=== PATIENT | female | born 1970 | race Caucasian/White ===

== ENCOUNTER 2020-03-02 15:41 | Emergency (ER) | payer OTHER, SELFPAY ==
[2020-03-02 15:50] VITALS: BP 125/81; PULSE 82; RESP 17; TEMP 37.2; O2SAT 98
--- NOTE | 2020-03-02 15:55 | ED.URI ---
HPI - URI/Sore Throat General Chief Complaint: Upper Respiratory Infection Stated Complaint: ear pain/sore throat/cough Time Seen by Provider: 03/02/20 15:59 Source: patient Mode of arrival: ambulatory Limitations: no limitations History of Present Illness HPI Narrative: Hannah García is a 49 yo female with PMH of ADD with complaint of R ear and R thraot pain and difficulty swallowing since Monday. Knot in R throat started today. Pain is 04/10 Related Data Home Medications Medication Instructions Recorded Confirmed dextroamphetamine-amphetamine 20 mg PO DAILY 03/02/20 03/02/20 [Adderall XR] Allergies Allergy/AdvReac Type Severity Reaction Status Date / Time Penicillins Allergy Unknown Hives / Verified 02/28/19 14:25 Red Face Review of Systems Review of Systems: Narrative: CONSTITUTIONAL: Denies fever, chills, sweats. EYES: Denies visual changes, redness, discharge. ENT: Denies rhinorrhea, congestion, has sore throat, R otalgia. CARDIOVASCULAR: Denies chest pain, palpitations, edema. RESPIRATORY: Denies dyspnea, wheezing, mild cough GASTROINTESTINAL: Denies abdominal pain, nausea, vomiting, diarrhea. GENITOURINARY: Denies dysuria, hematuria, abnormal discharge SKIN: Denies rash or itching. NEUROLOGIC: Denies numbness, or focal weakness. PSYCHIATRIC: Denies anxiety or depression. [facility] Surgical History Surgical History (Updated 03/02/20 @ 16:08 by Diana Belle CNP) History of tonsillectomy Family History Family History Other Hypertension Social History Social History (Updated 03/02/20 @ 16:09 by Diana Belle CNP) Smoking status: Never smoker Alcohol intake: current Comments At time of signature, I agree with nursing past medical, surgical, social and family history. There is no relevant family history pertinent to the presenting complaint. Exam Narrative: Exam Narrative: GENERAL: This is a well-nourished, well-developed patient, in mild distress. HEAD: normocephalic, atraumatic. EYES: Sclera clear/white. Vision is grossly intact. EARS: External ears normal, auditory canals clear , mild redness of canal on R, TMs normal without perforation. Hearing grossly intact. NOSE: External nose normal without nasal discharge, nares without redness, no rhinorrhea. THROAT: Mucous membranes moist, posterior pharynx erythema; lump R LN midway down trachea NECK: Neck supple, non-tender CARDIOVASCULAR: Regular rate and rhythm without murmurs, gallops, or rubs. RESPIRATORY: Coarse to auscultation. Breath sounds equal bilaterally. No wheezes, rales, or rhonchi. GASTROINTESTINAL: Abdomen soft, non-tender, SKIN: warm, intact with no suspicious lesions or rash, good texture and turgor. NEURO: awake, alert, and oriented to person, place and time. There were no obvious focal neurologic abnormalities. Steady gait EXTREMITIES: Normal range of motion. BACK: Nontender without deformity Course Course Emergency Course: Strep test neg- however with swallowing and lymph swelling, treated with amoxicillin Vital Signs Vital signs: Vital Signs Temperature 98.9 F 03/02/20 15:50 Pulse Rate 82 03/02/20 15:50 Respiratory Rate 17 03/02/20 15:50 Blood Pressure 125/81 03/02/20 15:50 Pulse Oximetry 98 03/02/20 15:50 Temperature 98.9 F 03/02/20 15:50 Pulse Rate 82 03/02/20 15:50 Respiratory Rate 17 03/02/20 15:50 Blood Pressure 125/81 03/02/20 15:50 Pulse Oximetry 98 03/02/20 15:50 MDM - URI/Sore Throat Differential Diagnosis Differential diagnosis: Likely otitis media, viral infection, pharyngitis and other Lab Data Labs: Strep Screen Presumptive Negative *(Reference Range: Negative)* Discharge Plan Discharge Clinical Impression: Adenitis, acute Pharyngitis Qualifiers: Pharyngitis/tonsillitis etiology: unspecified etiology Qualified Code(s): J02.9 - Acute pharyngitis, un
== END 2020-03-02 16:18 | disposition home or self-care (01) ==
PROVIDERS: Emergency Provider Nurse Practitioner; PCP Family Medicine
DX: L04.9 Acute lymphadenitis, unspecified (principal); J02.9 Acute pharyngitis, unspecified; H92.01 Otalgia, right ear
CPT/HCPCS: 87081; 87880; 99213; G0463

== ENCOUNTER 2023-05-16 14:07 | Outpatient (CLI) | payer OTHER, SELFPAY ==
--- NOTE | ~2023-05-16 | XR_ITS ---
EXAMINATION: XR lumbar spine 2-3V DATE: 05/16/2023 14:24 INDICATION: Dorsalgia, unspecified TECHNIQUE: Anteroposterior and lateral views of the lumbar spine, and cone-down lateral view of the l umbosacral junction were obtained. COMPARISON: None. FINDINGS: There are 2 mm of retrolisthesis of L3 on L4. The vertebral body heights are normal. There is no fracture. There is moderate loss of intervertebral disc space height at L2-3 and L3-4. Small de generative osteophytes project from the anterior endplates of multiple vertebral bodies. There is mod erate facet joint osteoarthritis of the lower lumbar spine. IMPRESSION: 1. Moderate lumbar spondylosis without acute findings. Reviewed, dictated and finalized at location [facility].
[2023-05-16 19:33] LABS: Hematocrit 38.6 % (37.0-47.0); Hemoglobin 12.9 g/dL (12.0-15.0); Mean Corpuscular HGB Conc 33.4 g/dl (32-36); Mean Corpuscular Hemoglobin 30.8 pg (26-34); Mean Corpuscular Volume 92.1 fl (80-100); Mean Platelet Volume 11.1 fl (7.4-10.4); Platelet Count Result 239 k/mm3 (150-375); Red Blood Count 4.19 M/mm3 (4.2-5.4); Red Cell Distribution Width 12.1 % (11.5-14.5)
[2023-05-16 19:47] LABS: Alanine Aminotransferase 54 U/L (6-35); Albumin Level 4.6 g/dL (3.5-5.1); Alkaline Phosphatase 70 U/L (38-126); Anion Gap 3 mmol/L (8-16); Aspartate Amino Transferase 67 U/L (14-36); Bilirubin,Total 0.5 mg/dL (0.2-1.3); Blood Urea Nitrogen 11 mg/dL (7-17); Calcium 9.5 mg/dL (8.4-10.2); Carbon Dioxide 32 mmol/L (22-30); Chloride 102 mmol/L (98-107); Cholesterol 238 mg/dL (0-200); Estimated Glomerular Filt Rate > 60; Glucose 86 mg/dL (65-110); HDL Direct 41 mg/dL; Potassium 4.2 mmol/L (3.4-5.0); Sodium 137 mmol/L (137-145); Triglycerides 279 mg/dL (<150)
[2023-05-16 20:06] LABS: Vitamin D 25 Hydroxy 35.1 ng/mL
[2023-05-16 20:52] LABS: Folic Acid 14.9 ng/mL (2.76->20)
[2023-05-16 21:45] LABS: LDL Cholesterol Direct 148 mg/dL
== END 2023-05-16 14:08 | disposition home or self-care (01) ==
PROVIDERS: PCP Nurse Practitioner Adult Health; Visit Provider Nurse Practitioner Adult Health
DX: M54.9 Dorsalgia, unspecified (principal); Z13.9 Encounter for screening, unspecified; M47.896 Other spondylosis, lumbar region
CPT/HCPCS: 36415; 72100; 80053; 80061; 82306; 82607; 82746; 84443; 85027

== ENCOUNTER 2023-10-11 12:47 | Outpatient (CLI) | payer OTHER, SELFPAY ==
--- NOTE | ~2023-10-11 | XR_ITS ---
Clinical Indication: Influenza PA and lateral views of the chest: Comparison: 02/28/2019 Findings: The lungs are clear, without evidence of focal consolidation or pleural effusion. Cardiome diastinal silhouette is within normal limits. Bones and soft tissues are unremarkable. Impression: Normal chest. Reviewed, dictated and finalized at [facility]. R TRIMMER Impression: Normal chest.
== END 2023-10-11 12:48 | disposition home or self-care (01) ==
LOC: ANHBWCIMG 12:48
PROVIDERS: PCP Nurse Practitioner Adult Health; Visit Provider Nurse Practitioner Adult Health
DX: J11.1 Influenza due to unidentified influenza virus with other respiratory manifestations (principal)
CPT/HCPCS: 71046

== ENCOUNTER 2024-11-06 10:53 | Emergency (ER) | payer OTHER, SELFPAY ==
[2024-11-06 12:01] VITALS: BP 115/78; PULSE 80; RESP 16; TEMP 36.4; O2SAT 97
--- NOTE | 2024-11-06 12:14 | ED_ITS ---
HPI - Back Pain/Injury General Chief Complaint: Back Pain/Injury Stated Complaint: BACK PAIN Time Seen by Provider: 11/06/24 10:55 Source: patient Mode of arrival: ambulatory Limitations: no limitations History of Present Illness HPI Narrative: Patient is a 54-year-old female who presents with upper left back pain since yesterday. Patient denies any new activity and was not doing anything abnormal when pain started. Patient does states she got a new bed. Denies any persistent cough. Reports feeling a ball in her back and it released. Related Data Home Medications ?Medication ?Instructions ?Recorded ?Confirmed ?Last Taken ?Type dextroamphetamine-amphetamine ER 20 mg PO BID 05/16/23 05/16/23 Unknown History 20 mg 24hr capsule,extend release (Adderall XR) montelukast 10 mg tablet 10 mg PO DAILY 05/16/23 05/16/23 Unknown History Allergies Allergy/AdvReac Type Severity Reaction Status Date / Time Penicillins Allergy Unknown Hives / Verified 11/06/24 12:05 Red Face Review of Systems Review of Systems: All systems reviewed & are unremarkable except as noted in HPI and below Constitutional: Constitutional: Denies body ache(s), Denies chills, Denies fatigue, Denies fever(s), Denies headache(s), Denies malaise and Denies weakness Eyes: Eyes: Denies blurry vision, Denies irritation and Denies loss of vision ENT: Denies otalgia, Denies headache(s), Denies nasal discharge, Denies sinus pain and Denies sore throat Cardiovascular: Cardiovascular: Denies chest pain, Denies irregular heart rhythm and Denies dyspnea Respiratory: Respiratory: Denies dyspnea Gastrointestinal: Gastrointestinal: Denies abdominal pain, Denies melena, Denies hematochezia, Denies diarrhea, Denies nausea and Denies vomiting Musculoskeletal: Musculoskeletal: Reports back pain, Denies myalgias and Denies arthralgias Integumentary/Breasts: Skin/Breast: Denies pruritus and Denies rash Neurologic: Denies headache(s), Denies loss of vision and Denies weakness Psychiatric: Psychiatric: Reports no additional psychiatric complaints Endocrine: Endocrine: Denies fatigue PMFSH Past Medical History Medical History Ectopic Surgical History Surgical History History of hysterectomy History of tonsillectomy and adenoidectomy History of tonsillectomy Family History Family History Father Cancer Hypertension Heart disease Mother Heart disease Grandparent Heart disease Hypertension Grandparent Cancer Hypertension Social History Social History Smoking status: Never smoker Tobacco type: e-cigarettes/vaping Alcohol intake: former Lack of Transportation: No Lack of Food: Never True Current Housing: I Have Housing Concerned About Future Housing: No Difficulty Paying Gas/Electric Bills: No Difficulty Paying for Meds: No Currently Unemployed: No Education: High School Diploma/GED Difficulty w/ Childcare or Family Care: No Living arrangements: with family Gender identity (if verbalized by the patient): Female Agree to blood products: Yes Comments At time of signature, agree with nursing past medical, surgical, social and family history. There is no relevant family history pertinent to the presenting complaint. Exam Const: General: cooperative, healthy appearing, comfortable, no acute distress and well nourished Nutritional Appearance: well nourished Orientation/consciousness: patient oriented x3 Limitations: no limitations HENMT: Head: normal to inspection, normocephalic and atraumatic Ears: hearing grossly normal bilaterally and external ears normal Face/Nose/Sinus: Normal external nose present, normal facial exam and face symmetric Face and sinus: normal facial exam and face symmetric Mouth: Yes lip normal Eyes: General: appearance normal, both eyes and all related structures Alignment and Position: alignment normal and position normal Periorbital: periorbital findings normal Eyelids: eyelids normal Pupils: Equal, round and reactive pupils present EOM: EOMs intact bilaterally Neck: Neck: normal visual inspection, full ROM and supple Chest: Chest palpation & inspection: normal inspection of the chest Resp: Effort & Inspection: normal respiratory effort and able to speak in complete sentences Auscultation: clear to auscultation bilaterally Cardio: Rate: regular rate Rhythm: regular rhythm Heart sounds: S1 normal heart sound present and S2 normal heart sound present GI: Inspection: normal to inspection Back/Spine/Pelvis: Thoracic/Lumbar Spine: thoracic and lumbar spine normal to inspection, pain with thoraco-lumbar ROM, paraspinal muscle tenderness on the left in the mid thoracic, No thoracic spinal tenderness and No lumbar spinal tenderness Skin: General skin exam: normal color and no rashes or lesions noted Neuro: General: patient oriented x3 and moves all extremities Cranial nerves: Yes Equal, round and reactive pupils present Speech: normal speech Gait exam (Neuro): Normal gait present Extrem: General: normal to inspection, full ROM and no edema Psych: Appearance: grossly normal and well kempt Mental Status: mental status grossly normal Speech and movement: Normal speech and movement present Affect: normal affect Attitude: cooperative Thought process: Normal thought process present Course Course Emergency Course: Patient is aware of diagnosis, understands and agrees to treatment plan. Anticipatory guidance given. Patient agrees to follow-up as directed and is aware of reasons to seek care at the emergency department. Portions of this record may have been created with voice recognition software Level of Care: Express Care Visit Vital Signs Vital signs: Vital Signs Temperature 36.4 C 11/06/24 12:01 Pulse Rate 80 11/06/24 12:01 Respiratory Rate 16 11/06/24 12:01 Blood Pressure 115/78 11/06/24 12:01 Pulse Oximetry 97 11/06/24 12:01 Temperature 36.4 C 11/06/24 12:01 Pulse Rate 80 11/06/24 12:01 Respiratory Rate 16 11/06/24 12:01 Blood Pressure 115/78 11/06/24 12:01 Pulse Oximetry 97 11/06/24 12:01 Reviewed MDM - Back Pain/Injury MDM Narrative Medical decision making narrative: Pt well hydrated appearing, in no respiratory distress, hemodynamically stable. Recommend supportive care. The patient is stable at time of discharge the clinical impression was discussed and the patient was given the opportunity to ask questions, which were addressed as completely as possible given the information available at present. Anticipatory guidance and return to care precautions were discussed and the importance of primary care follow-up was stressed and encouraged. The patient voiced understanding of the plan, indications to return, and the need for follow-up. Exam findings show no acute concerns or changes Patient is appropriate for outpatient treatment and follow-up. Differential Diagnosis Differential diagnosis: Likely thoracic back pain and other (Thoracic muscle strain. Thoracic radiculopathy) Medical Records Attestation: I reviewed the patient's medical records. Discharge Plan Discharge Clinical Impression: Muscle strain of left upper back Qualifiers: Encounter type: initial encounter Qualified Code(s): S29.012A - Strain of muscle and tendon of back wall of thorax, initial encounter Patient Disposition: Home, Self-Care Condition: Stable Instructions: Back Pain (ED) Additional Instructions: Please follow up with your Primary Care Doctor within 48-72 hours - call for an appointment. Walking and other gentle exercising several times a week has been shown to improve back pain; bed rest is not recommended. Take steroids in the morning with food, take muscle relaxers every 8 hours as needed for muscle spasm. do not drive or make any important decisions while on this medication for it can make you drowsy. You may apply heat or cold to the area as needed. Contact your doctor or go to the emergency department if you develop problems with bladder or bowel function, weakness or loss of feeling in one or both of your legs, or any other serious concerns. Patient Language: Greenlandic Prescriptions: New prednisone 20 mg tablet 40 mg PO DAILY 5 Days Qty: 10 0RF baclofen 10 mg tablet 10 mg PO TID 5 Days Qty: 15 0RF No Action montelukast 10 mg tablet 10 mg PO DAILY dextroamphetamine-amphetamine [Adderall XR] 20 mg capsule,extended release 24hr 20 mg PO BID methylprednisolone [Medrol (Parish)] 4 mg tablets,dose pack See Rx Instructions PO PER PKG DIR Qty: 21 0RF Rx Instructions: PO PER PKG DIR azithromycin 250 mg tablet See Rx Instructions PO .COMPLEX Qty: 6 0RF Rx Instructions: For 250 mg dose pack: take 500 mg today (day 1), then 250 mg for 4 days (days 2-5) PO azithromycin 250 mg tablet See Rx Instructions PO .COMPLEX Qty: 6 0RF Rx Instructions: For 250 mg dose pack: take 500 mg today (day 1), then 250 mg for 4 days (days 2-5) PO methylprednisolone [Medrol (Parish)] 4 mg tablets,dose pack See Rx Instructions PO PER PKG DIR Qty: 21 0RF Rx Instructions: PO PER PKG DIR sumatriptan succinate [Imitrex] 50 mg tablet 50 mg PO ONCE PRN (Reason: migraine headache) Qty: 14 1RF Follow-up/Referrals: Carole,Dale Purdy MD [Primary Care Provider] - 3 Days Time of Disposition: 12:21
== END 2024-11-06 12:25 | disposition home or self-care (01) ==
PROVIDERS: Emergency Provider Nurse Practitioner Family; PCP Family Medicine
DX: S29.012A Strain of muscle and tendon of back wall of thorax, initial encounter (principal); X58.XXXA Exposure to other specified factors, initial encounter
CPT/HCPCS: 99213; G0463

== ENCOUNTER 2025-02-09 15:27 | Emergency (ER) | payer OTHER, SELFPAY ==
--- NOTE | ~2025-02-09 | XR_ITS ---
XR foot RT min 3V Ordering provider: Deborah Lutz PA-C History: . right foot pain, injury . Comparison: None. FINDINGS: BONES: Oblique fracture of the midshaft of the right fifth metatarsal bone. JOINT SPACES: Narrowing of the proximal and distal interphalangeal joints of the fifth toe. Narrowing of the distal interphalangeal joints. No tarsal coalition. SOFT TISSUES: Normal. Calcaneal spur. IMPRESSION: Oblique fracture of the left fifth metatarsal bone. Polyarticular osteoarthritic changes. Reviewed, dictated and finalized at location A.
--- NOTE | ~2025-02-09 | XR_ITS ---
XR ankle RT min 3V Ordering provider: Deborah Lutz PA-C History: . right ankle pain, injury . Comparison: None. FINDINGS: BONES: Fracture in the fifth metatarsal bone. JOINT SPACES: Normal. SOFT TISSUES: Normal. Calcaneus spur. IMPRESSION: No acute osseous abnormality of the right ankle. Fracture of the midshaft of the fifth metatarsal bone. Reviewed, dictated and finalized at location A.
--- OUTSIDE RECORDS SUMMARY | 2025-02-09 15:30 | XMS_ITS | Referral Summary ---
Author Organization [facility] Address [address] [place] [id number] Care Team Providers Care Bindery Supervisor Name Role Phone Jordan Merritt MD Unavailable [phone] Dale Lam MD Primary Care Provider [phone] Encounters Date Type Department Care Team Description 02/03/2025 Orders Only [facility] Primary Care at [address] [phone] Dale Lam MD Mixed hyperlipidemia (Primary Dx) 02/03/2025 9:00 AM CDT Office Visit [facility] at [address] [phone] Dale Lam MD Attention deficit hyperactivity disorder (ADHD), combined type (Primary Dx) 01/09/2025 Results Follow-Up [facility] at [address] [phone] Dale Lam MD 01/07/2025 Telephone [facility] at [address] [phone] Dale Lam MD Test Results 01/06/2025 11:49 AM CDT - 01/06/2025 11:59 PM CDT Hospital Encounter [address] [address] Need for hepatitis C screening test; Need for hepatitis B screening test; Type 2 diabetes mellitus with hyperglycemia, without long-term current use of insulin (HCC); Screening, lipid; Screening for thyroid disorder; Well adult exam Discharge Disposition: Discharge to home or self care 01/06/2025 Telephone [facility] at [address] [place] [address] Jeffry Lara MD 01/06/2025 12:00 PM CDT Lab [facility] at [address] [phone] Well adult exam (Primary Dx) 01/06/2025 11:15 AM CDT Office Visit [facility] at [address] [phone] Dale Lam MD Well adult exam (Primary Dx); Screening, lipid; Screening for thyroid disorder; Type 2 diabetes mellitus with hyperglycemia, without long-term current use of insulin (HCC); Need for hepatitis B screening test; Need for hepatitis C screening test; Need for vaccination; Colon cancer screening from Last 3 Months Allergies Active Allergy Reactions Criticality Noted Date Comments Ampicillin Hives Medium Codeine Rash,Nausea & Vomiting Medium Reaction: Rash, Latex Rash Medium Reaction: Rash, Penicillins Hives,Vomiting,Urticaria Medium Reaction: Hives, , Reaction: Vomiting, Reaction: Hives, , Reaction: Vomiting, Medications multivitamin capsule Take 1 capsule by mouth daily Active albuterol HFA (Ventolin HFA) 90 mcg/actuation inhalerIndicatio ns:Mild intermittent asthma, unspecified whether complicated Inhale 2 puffs every 6 (six) hours as needed for wheezing or shortness of breath 8 g 5 01/06/20 21 Active SUMAtriptan (IMITREX) 50 mg tabletIndication s:Migraine Take 1 tablet (50 mg total) by mouth once as needed for migraine May repeat dose once in 2 hours if no relief. Do not exceed 2 doses in 24 hours. 9 tablet 3 09/15/20 22 Active atomoxetine (Strattera) 40 mg capsuleIndicatio ns:Attention-Def icit Hyperactivity Disorder Take 1 capsule (40 mg total) by mouth 2 (two) times a day 60 capsule 2 02/04/20 25 Active atomoxetine (Strattera) 40 mg capsuleIndicatio ns:Attention-Def icit Hyperactivity Disorder Take 1 capsule (40 mg total) by mouth daily 30 capsule 3 01/07/20 25 025 Discontinued(R eorder) atomoxetine (Strattera) 40 mg capsuleIndicatio ns:Attention-Def icit Hyperactivity Disorder Take 1 capsule (40 mg total) by mouth 2 (two) times a day 60 capsule 2 02/04/20 25 025 Discontinued Active Problems Problem Noted Date Diagnosed Date Diabetes mellitus 01/06/2025 Encounter for screening colonoscopy 01/06/2025 Neutropenia 03/21/2022 Acute recurrent maxillary sinusitis 07/23/2021 Assessment & Plan (07/23/2021 4:07 PM CDT): Azithromycin (though it is early in the course) Continue other medications in play Start mucinex DM as well (both for cough, and drainage) Alternatively, coricidin HBP can be used with plain Mucinex Malignant neoplasm of female breast 07/16/2021 Overview (07/16/2021): Added automatically from request for surgery [id number] COVID-19 virus infection 09/10/2020 Vitamin B12 deficiency 02/16/2018 Vitamin D deficiency 02/16/2018 Chronic midline low back pain with left-sided sc iatica 08/18/2017 Attention deficit hyperactiv ity disorder (ADHD), combined type 11/13/2015 Overview (01/06/2017): Attention deficit hyperactivity disorder, combined type Assessment & Plan (09/15/2022 1:31 PM TATTOOER): Stable, continues Adderall Refilled today for patient Herpes simplex virus (HSV) infection 05/05/2015 Overview (01/06/2017): Herpes simplex Asthma 07/25/2013 Overview (01/06/2017): Asthma Resolved Problems Problem Noted Date Diagnosed Date Resolved Date Menometrorrhagia 01/03/2019 05/14/2019 Overview (01/03/2019): Added automatically from request for surgery [id number] Dyspareunia, female 01/03/2019 05/14/20 19 Overview (01/03/2019): Added automatically from request for surgery [id number] Chronic pelvic pain in female 01/03/2019 05/14/2019 Overview (01/03/2019): Added automatically from request for surgery [id number] Pelvic pain in female 01/03/20192018 Overview (01/03/2019): Added automatically from request for surgery [id number] Abdominal adhesions 05/14/20 Adhesions of uterus 05/14/20 Adnexal adhesions 05/14/2019 Immunizations Immunization Administration Dates Next Due Influenza, Quadrivalent, Luann l Culture-based MDCK, Antibiotic Free, Intramuscular 08/21/2018 Influenza, Quadrivalent, Spl it, Intramuscular 09/15/2016 Influenza, Quadrivalent, Spl it, Preservative Free, Intramuscular 09/15/2022,07/07/2020,08/18/2017 Influenza, Trivalent, Cell Culture-based MDCK, Preservative Free, Antibiotic Free, Intramuscular 07/17/2024 Influenza, Trivalent, IM (MDV) 08/03/2013 Influenza, Unspecified 07/16/2021(Deferr ed: Patient Refused),08/21/2018 Pfizer SARS-CoV-2 Monovalent Vaccination (12+ Yrs) PURPLE 01/05/2021,12/08/2020 Pneumococcal Conjugate Pcv20 01/06/2025 Tdap 07/07/2020 ZOSTER Recombinant 01/06/2025 Social History Tobacco Use Types Packs/Day Years Used Date Smoking Tobacco: Former Cigarettes 1 28 0 10/02/1988 - 2016 Smokeless Tobacco: Never Tobacco Cessation:Counseling Given: Not Answered Comments:Smoking History Packs/day: 1 Packs Alcohol Use Standard Drinks/Week Comments Not Currently 0 (1 standard drink = 0.6 oz pur e alcohol) rarely Humiliation, Afraid, Rape, and Kick questionnair e Answer Date Recorded Within the last year, have y ou been afraid of your partner or ex-partner? No 07/07/2020 Within the last year, have y ou been humiliated or emotionally abused in other ways by your partner or ex-partner? No Within the last year, have y ou been kicked, hit, slapped, or otherwise physically hurt by your partner or ex-partner? No 07/07/2020 Within the last year, have y ou been raped or forced to have any kind of sexual activity by your partner or ex-partner? No 07/07/2020 Social Connection and Isolat ion Panel [NHANES] Answer Date Recorded In a typical week, how many times do you talk on the phone with family, friends, or neighbors? More than three times a week 07/07/2020 How often do you get togethe r with friends or relatives? More than three times a week 07/07/2020 How often do you attend [facility] or christian services? More than 4 times per year 07/07/2020 Do you belong to any clubs o r organizations such as mosque groups, unions, fraternal or athletic groups, or school groups? No 07/07/2020 How often do you attend meet ings of the clubs or organizations you belong to? Never 07/07/2020 Are you , , di vorced, , never , or living with a partner? 07/07/2020 AUDIT-C Answer Date Recorded Q1: How often do you have a drink containing alcohol? Never 01/06/2025 Q2: How many drinks containi ng alcohol do you have on a typical day when you are drinking? Patient does not drink Q3: How often do you have si x or more drinks on one occasion? Never 01/06/2025 Overall Financial Resource Strain (CARDIA) Answe r Date Recorded How hard is it for you to pa y for the very basics like food, housing, medical care, and heating? Somewhat hard 07/07/2020 PHQ-2 Answer Date Recorded PHQ-2 Total Score (If total score is 3 or more points, staff should administer the PHQ-9) 0 01/06/2025 [facility] - Occupational Stress Questionnaire Answer Date Recorded Do you feel stress - tense, restless, nervous, or anxious, or unable to sleep at night because your mind is troubled all the time - these days? To some extent 07/07/2020 Exercise Vital Sign Answer Date Recorde d On average, how many days pe r week do you engage in moderate to strenuous exercise (like a brisk walk)? 3 days 07/07/2020 On average, how many minutes do you engage in exercise at this level? 30 min 07/07/2020 Hunger Vital Sign Answer Date Recorded Within the past 12 months, y ou worried that your food would run out before you got the money to buy more. Never true 07/07/20 20 Within the past 12 months, t he food you bought just didn't last and you didn't have money to get more. Never true 07/07/2020 PRAPARE - Transportation Answer Date Re corded In the past 12 months, has l ack of transportation kept you from medical appointments or from getting medications? No 03/2020 In the past 12 months, has l ack of transportation kept you from meetings, work, or from getting things needed for daily living? No 07/07/2020 Comments No Sex and Gender Information Value Date Recorded Sex Assigned at Not on file Legal Sex Female 11:04 AM TATTOOER Gender Identity Not on file Sexual Orientation Not on file Occupation Industry Job Start Date Job End Date Not on file Not on file Not on file Not on file Last Filed Vital Signs Vital Sign Reading Time Taken Comments Blood Pressure 140/80 02/03/2025 9:09 AM CDT Pulse 74 02/03/2025 9:09 AM CDT Temperature 36.1 C (96.9 F) 02/03/2025 9:09 AM CDT Respiratory Rate 18 02/03/2025 9:09 AM CDT Oxygen Saturation 98% 02/03/2025 9:09 AM CDT Inhaled Oxygen Concentration - - Weight 85.7 kg (189 lb) 02/03/2025 9:09 AM CDT Height 175.3 cm (5' 9 ) 02/03/2025 9:09 AM CDT Body Mass Index 27.91 02/03/2025 9:09 AM CDT Plan of Treatment Upcoming Encounters Date Type Department Care Team (Late st Contact Info) Description 08/20/2025 11:00 AM TATTOOER Hospital Encounter [facility] [address] [place] [address] Jeffry Lara MD [address] [place] [address] 08/20/2025 11:00 AM TATTOOER - 08/20/2025 11:30 AM TATTOOER Surgery [facility] [address] [place] [address] Jeffry Lara MD [address] [place] [address] COLONOSCOPY Scheduled Procedures Name Priority Associated Diagnoses Date/Ti me COLONOSCOPY Encounter for screening colonoscopy 08/20/2025 11:00 AM TATTOOER Procedures Procedure Name Priority Date/Time Associated Diagnosis Comments EGFR Routine 01/06/2025 11:49 AM CDT Well adult exam CHOLESTEROL, LDL, DIRECT Routine 01/06/2025 11:49 AM CDT Screening, lipid DIFFERENTIAL AUTO Routine 01/06/2025 11:49 AM CDT Well adult exam HEMOGLOBIN A1C Routine 01/06/2025 11:49 AM CDT Type 2 diabetes mellitus with hyperglycemia, without long-term current use of insulin (HCC) COMPREHENSIVE METABOLIC PANEL Routine 01/06/2025 11:49 AM CDT Well adult exam CBC WITH AUTO DIFFERENTIAL Routine 01/06/2025 11:49 AM CDT Well adult exam THYROID FUNCTION CASCADE Routine 01/06/2025 11:49 AM CDT Screening for thyroid disorder LIPID PANEL Routine 01/06/2025 11:49 AM CDT Screening, lipid ALBUMIN CREATININE RATIO, URINE Routine 01/06/2025 11:49 AM CDT Type 2 diabetes mellitus with hyperglycemia, without long-term current use of insulin (HCC) HEPATITIS B SURFACE ANTIBODY (IMMUNE STATUS) Routine 01/06/2025 11:49 AM CDT Need for hepatitis B screening test HEPATITIS B CORE ANTIBODY, TOTAL Routine 01/06/2025 11:49 AM CDT Need for hepatitis B screening test HEPATITIS B SURFACE ANTIGEN Routine 01/06/2025 11:49 AM CDT Need for hepatitis B screening test HEPATITIS C ANTIBODY Routine 01/06/2025 11:49 AM CDT Need for hepatitis C screening test CT LUNG CANCER SCREENING Schedule Routine, Read Routine (OP Routine) 04/24/2024 4:45 PM CDT Personal history of nicotine dependence SCREENING MAMMOGRAM BILATERAL W ALIRIO Schedule Routine, Read Routine (OP Routine) 04/20/2022 8:37 AM CDT Breast cancer screening by mammogram PAP IG, HPV-HR Routine 01/01/2019 3:19 PM CDT Encounter for gynecological examination (general) (routine) with abnormal findings COLONOSCOPY IMAGES 02/17/2015 from Last 3 Months or Most Recently Relevant to Health Maintenance Results * eGFR (01/06/2025 11:49 AM CDT) eGFR >90 >=60 mL/min/1. 73 m2 Comment: Interpretive Data Reference Interval Normal >/= 90 mL/min/1.73m2 Mildly decreased* 60 - 89 mL/min/1.73m2 Mildly to moderately decreased 45 - 59 mL/min/1.73m2 Moderately to severely decreased 30 - 44 mL/min/1.73m2 Severely decreased 15 - 29 mL/min/1.73m2 Kidney Failure < 15 mL/min/1.73m2 *Relative to young adult level Estimated glomerular filtration rate is determined by the 2020 CKD-EPI equation recommended by the National Kidney Foundation (A Unifying Approach to GFR Estimation: Recommendations of the NKF-ASK Task Force on Reassessing the Inclusion of Race in Diagnosing Kidney Disease, JASN 2020). The CKD-EPI equation should not be used for patients with unstable renal function and has not been validated in children and those over 70. Current interpretive data was last reviewed 2021. Blood 01/06/2025 11:4 9 AM CDT 01/06/2025 11:22 PM CDT us Dale Lam MD LAB BLOOD ORDERABLES Final Result Performing Organization Address City/State/ZIP Co mt Phone Number [facility] [address] Department [place] [address] * Differential, auto (01/06/2025 11:49 AM CDT) Neutrophil abs 2.88 1.50 - 6.50 K/cumm Imm gran abs 0.01 0.00 - 0.10 K/cumm [facility] Lymphocyte abs 1.83 0.80 - 3.30 K/cumm [facility] Monocyte abs 0.48 0.20 - 0.80 K/cumm [facility] Eosinophil abs 0.07 0.00 - 0.50 K/cumm [facility] Basophil abs 0.04 0.00 - 0.10 K/cumm [facility] Neutrophil pct 54.2 % [facility] Comment: Interpretive Data Percent cell count reference ranges are not reported, since discordance with absolute values may lead to misinterpretation of CBC data. Current Interpretive Data was last revised on 2018. Imm gran pct 0.2 % [facility] Comment: Interpretive Data Percent cell count reference ranges are not reported, since discordance with absolute values may lead to misinterpretation of CBC data. Current Interpretive Data was last revised on 2018. Lymphocyte pct 34.5 % [facility] Comment: Interpretive Data Percent cell count reference ranges are not reported, since discordance with absolute values may lead to misinterpretation of CBC data. Current Interpretive Data was last revised on 2018. Monocyte pct 9.0 % [facility] Comment: Interpretive Data Percent cell count reference ranges are not reported, since discordance with absolute values may lead to misinterpretation of CBC data. Current Interpretive Data was last revised on 2018. Eosinophil pct 1.3 % [facility] Comment: Interpretive Data Percent cell count reference ranges are not reported, since discordance with absolute values may lead to misinterpretation of CBC data. Current Interpretive Data was last revised on 2018. Basophil pct 0.8 % [facility] Comment: Interpretive Data Percent cell count reference ranges are not reported, since discordance with absolute values may lead to misinterpretation of CBC data. Current Interpretive Data was last revised on 2018. Blood 01/06/2025 11:4 9 AM CDT 01/06/2025 11:12 PM CDT Dale Lam MD LAB BLOOD ORDERABLES Final Result Performing Organization Address City/[facility] Co de Phone Number [facility] [phone] [place] [address] * Thyroid Function [place] (01/06/2025 11:49 AM CDT) Pathologist [facility] TSH 1.55 0.30 - 4.20 mcIUnit/mL Blood 01/06/2025 11:4 9 AM CDT 01/06/2025 11:12 PM CDT Dale Lam MD LAB BLOOD ORDERABLES Final Result Performing Organization Address [facility] Co de Phone Number BANNERDIMAS [address] [place] [address] * (ABNORMAL) CBC with auto differential (01/06/2025 11:49 AM CDT) Pathologist [facility] WBC 5.31 3.80 - 9.90 K/cumm Hgb 13.2 11.9 - 15.5 g/dL [facility] Hct 41.0 35.6 - 45.5 % [facility] Plt 261 150 - 400 K/cumm [facility] MPV 11.0 9.1 - 12.3 fL [facility] RBC 4.43 3.90 - 5.20 M/cumm [facility] MCV 92.6 81.3 - 96.4 fL [facility] MCH 29.8 27.1 - 33.3 pg [facility] MCHC 32.2(L) 32.3 - 35.7 g/dL [facility] RDW CV 12.3 11.1 - 14.9 % [facility] RDW SD 42.2 35.7 - 48.1 fL [facility] NRBC abs 0.00 0.00 - 0.01 K/cumm [facility] Blood 01/06/2025 11:4 9 AM CDT 01/06/2025 11:12 PM CDT Dale Lam MD LAB BLOOD ORDERABLES Final Result Performing Organization Address [facility] de Phone Number [facility] [phone] [place] [address] * Hepatitis C antibody Blood (01/06/2025 11:49 AM CDT) Hep C Ab Nonreactive Nonreactive Comment: Interpretive Data Nonreactive: Antibodies to HCV not detected. Does NOT exclude the possibility of recent exposure to HCV. Equivocal: Equivocal for HCV antibodies. Supplemental molecular testing will be automatically performed to determine infection status in accordance with current CDC screening recommendations. Reactive: Positive for HCV antibodies. This may represent current or past HCV infection. Supplemental molecular testing will be automatically performed to determine current infection status in accordance with current CDC screening recommendations. Interpretive data was last revised on 2019. Blood 01/06/2025 11:4 9 AM CDT 01/06/2025 11:12 PM CDT Dale Lam MD LAB MICROBIOLOGY - GENERAL ORDERABLES Final Result Performing Organization Address [facility] Co de Phone Number [facility] [address] [employer] [place], [place] [id number] * Albumin Creatinine Ratio, Urine (01/06/2025 11:49 AM CDT) Albumin Ur <12.0 mg/L Comment: Interpretive Data No reference range established. Current interpretive data was last revised 2019. Creatinine Ur 139.8 mg/dL [facility] Comment: Interpretive Data No reference range established. Current interpretive data was last revised 2019. Albumin Creatinine Ratio, Ur <9 1 - 29 mg/g [facility] Urine 01/06/2025 11:4 9 AM CDT 01/06/2025 11:12 PM CDT Dale Lam MD LAB URINE ORDERABLES Final Result Performing Organization Address City/[facility] Co de Phone Number MICHEAL [phone] Department [place] [address] * Hepatitis B core antibody, total Blood (01/06/2025 11:49 AM CDT) Hep B core IgG/IgM Nonreactive Nonreactive Comment:Testing performed by : [facility], [address] [facility], [place]., [address] Blood 01/06/2025 11:4 9 AM CDT 01/07/2025 10:08 AM CDT Dale Lam MD LAB MICROBIOLOGY - GENERAL ORDERABLES Final Result Performing Organization Address [facility] Co de Phone Number MICHEAL [phone] Department [place] [address] * Hepatitis B surface antibody (immune status) Blood (01/06/2025 11:49 AM CDT) HBsAb (immune status) Nonreactive Comment: Interpretive Data Nonreactive: This result is consistent with a lack of immunity to Hepatitis B Virus when used in the setting of routine screening. Equivocal: The immune status of the individual should be further assessed, if appropriate, after consideration of clinical status, risk factors, and additional diagnostic information. Reactive: This result is consistent with immunity to Hepatitis B Virus when used in the setting of routine screening. Current interpretive data was last revised on 19. Blood 01/06/2025 11:4 9 AM CDT 01/06/2025 11:12 PM CDT Dale Lam MD LAB MICROBIOLOGY - GENERAL ORDERABLES Final Result Performing Organization Address [facility] Co de Phone Number MIC[facility]AL [phone] [facility] [place] [address] * Hepatitis B Surface Antigen Blood (01/06/2025 11:49 AM CDT) HepBsAg Nonreactive Nonreactive Blood 01/06/2025 11:4 9 AM CDT 01/06/2025 11:12 PM CDT Dale Lam MD LAB MICROBIOLOGY - GENERAL ORDERABLES Final Result Performing Organization Address [facility] Co de Phone Number KATHYADIMAS [phone] [facility] [place] [address] * (ABNORMAL) Cholesterol, LDL, direct (01/06/2025 11:49 AM CDT) LDL Cholesterol, Direct 132(H) <=129 mg/dL Comment: Interpretive Data Ages < or = 19 years Acceptable: <110 mg/dL Borderline high: 110-129 mg/dL High: >or= 130 mg/dL Ages > or = 20 years Optimal: <100 mg/dL Near optimal: 100-129 mg/dL Borderline high: 130-159 mg/dL High: >160 mg/dL Literature References: 1. Expert Panel on Integrated Guidelines for Cardiovascular Health and Risk Reduction in Children and Adolescents. Pediatrics 2011;128:S213 2. NCEP Expert Panel. Circulation 2004;110:227 Current Interpretive Data was last revised on 2018. Blood 01/06/2025 11:4 9 AM CDT 01/06/2025 11:22 PM CDT Narrative MICHEAL MONIQUE - 01/07/2025 12:20 AM CDT Cholesterol, LDL, direct reflexed based on Elevated Triglyceride (>400) Dale Lam MD LAB BLOOD ORDERABLES Final Result Performing Organization Address [facility] Co de Phone Number MICHEAL [phone] [facility] [place] [address] * (ABNORMAL) Hemoglobin A1c (01/06/2025 11:49 AM CDT) Hgb A1C 5.7(H) 4.0 - 5.6 % Estimated Average Glucose 117 mg/dL [facility] MONIQUE Comment: The ADA recommends reporting an estimated Average Glucose (eAG) with all Hemoglobin A1c results using the equation derived from a study of 507 normal and diabetic adults. Minority populations were underrepresented and children were not included. (Diabetes Care 31:1976-5994, 2008). The eAG is not equivalent to a fasting glucose. Blood 01/06/2025 11:4 9 AM CDT 01/06/2025 11:12 PM CDT us Dale Lam MD LAB BLOOD ORDERABLES Final Result [facility] MONIQUE [address] Department [place] [address] * (ABNORMAL) Lipid panel (01/06/2025 11:49 AM CDT) Cholesterol 234(H) 30 - 199 mg/dL Comment: Interpretive Data Ages < or = 19 years Acceptable: <170 mg/dL Borderline high: 170-199 mg/dL High: >or= 200 mg/dL Ages > or = 20 years Desirable: <200 mg/dL Borderline high: 200-239 mg/dL High: >or= 240 mg/dL Literature References: 1. Expert Panel on Integrated Guidelines for Cardiovascular Health and Risk Reduction in Children and Adolescents. Pediatrics 2011;128:S213 2. NCEP Expert Panel. Circulation 2004;110:227 Current Interpretive Data was last revised on 2018. Triglycerides 493(H) <=149 mg/dL [facility] MONIQUE Comment: Interpretive Data Ages < or = 9 years Acceptable: <75 mg/dL Borderline high: 75-99 mg/dL High: >or= 100 mg/dL Ages 10 to 20 years Acceptable: <90 mg/dL Borderline high: 90-129 mg/dL High: >or= 130 mg/dL Ages > or = 20 years Desirable: <150 mg/dL Borderline high: 150-199 mg/dL High: 200-499 mg/dL Very high: >or= 499 mg/dL Literature References: 1. Expert Panel on Integrated Guidelines for Cardiovascular Health and Risk Reduction in Children and Adolescents. Pediatrics 2011;128:S213 2. NCEP Expert Panel. Circulation 2004;110:227 Current Interpretive Data was last revised on 2018. HDL 40 >=40 mg/dL MICHEAL MONIQUE Comment: Interpretive Data Ages < or = 19 years Acceptable: >45 mg/dL Borderline low: 40-45 mg/dL Low: <40 mg/dL Ages > or = 20 years Desirable: >or= 60 mg/dL Low: <40 mg/dL Literature References: 1. Expert Panel on Integrated Guidelines for Cardiovascular Health and Risk Reduction in Children and Adolescents. Pediatrics 2011;128:S213 2. NCEP Expert Panel. Circulation 2004;110:227 Current Interpretive Data was last revised on 2018. LDL, calculated See Comment <=129 mg/dL MICHEAL MONIQUE Comment: Unable to calculate due to elevated Triglycerides. Interpretive Data Ages < or = 19 years Acceptable: <110 mg/dL Borderline high: 110-129 mg/dL High: >or= 130 mg/dL Ages > or = 20 years Optimal: <100 mg/dL Near optimal: 100-129 mg/dL Borderline high: 130-159 mg/dL High: >160 mg/dL Calculated using the Rosas LDL-C estimating equation. This equation was implemented on 2024. Prior to this date LDL-C was estimated using the Friedewald equation. Literature References: 1. Expert Panel on Integrated Guidelines for Cardiovascular Health and Risk Reduction in Children and Adolescents. Pediatrics 2011;128:S213 2. NCEP Expert Panel. Circulation 2004;110:227 3. Rosas Swann et al. TOR Cardiol. 2020 January 30;5(5):540-548. doi: 10.1001/jamacardio.2020.0013 Current Interpretive Data was last revised on 2024. Non-HDL Cholesterol 194 mg/dL MICHEAL MONIQUE Comment: Interpretive Data Ages < or = 19 years Acceptable: <120 mg/dL Borderline high: 120-144 mg/dL High: >145 mg/dL Ages > or = 20 years When triglycerides are >200 mg/dL, Non-HDL cholesterol is a secondary target of therapy with treatment goals that are 30 mg/dL greater than the LDL cholesterol target. Literature References: 1. Expert Panel on Integrated Guidelines for Cardiovascular Health and Risk Reduction in Children and Adolescents. Pediatrics 2011;128:S213 2. NCEP Expert Panel. Circulation 2004;110:227 Current Interpretive Data was last revised on 2018. Chol/HDL ratio 6 [facility] Blood 01/06/2025 11:4 9 AM CDT 01/06/2025 11:12 PM CDT us Dale Lam MD LAB BLOOD ORDERABLES Final Result [facility] [id number] Department [place] [address] * Comprehensive metabolic panel (01/06/2025 11:49 AM CDT) Sodium 142 135 - 145 mmol/L Potassium, pl 3.8 3.3 - 4.9 mmol/L [facility] Chloride 100 97 - 110 mmol/L [facility] CO2 31 22 - 32 mmol/L [facility] Anion gap 11 2 - 15 mmol/L [facility] BUN 16 6 - 25 mg/dL [facility] Creatinine 0.67 0.60 - 1.10 mg/dL [facility] Glucose 84 70 - 199 mg/dL [facility] Comment: Interpretive Data Fasting glucose >/= 126 mg/dl is diagnostic for diabetes. Fasting is defined as no caloric intake for at least 8 hours. Fasting glucose between 100 mg/dl to 125 mg/dl is diagnostic of prediabetes. In a patient with classic symptoms of hyperglycemia or hyperglycemic crisis, a random glucose >/= 200 mg/dl is diagnostic for diabetes. In the absence of unequivocal hyperglycemia, results should be confirmed by repeat testing. The classification and Diagnosis of Diabetes Diabetes Care 202; 46: S19-S40. Current interpretive data was last revised 2022. Calcium 10.0 8.5 - 10.3 mg/dL CERN[facility] Bilirubin, total 0.3 0.1 - 1.2 mg/dL [facility] Protein, pl 7.5 6.5 - 8.5 g/dL [facility] Albumin 4.6 3.5 - 5.0 g/dL [facility] Alk phos 78 40 - 130 Units/L [facility] ALT 36 7 - 45 Units/L [facility] AST 36 10 - 45 Units/L [facility] Blood 01/06/2025 11:4 9 AM CDT 01/06/2025 11:12 PM CDT Dale Lam MD LAB BLOOD ORDERABLES Final Result [facility]HEAL MONIQUE [id number] Department [place] [address] * CT Lung Cancer Screening (04/24/2024 4:45 PM CDT) Anatomical Region Laterality Modality Chest N/A Computed Tomogra phy 04/25/2024 9:50 AM CDT Narrative 04/25/2024 10:03 AM CDT EXAM DESCRIPTION: CT LUNG CANCER SCREENING REASON FOR STUDY: Screening CT of the chest in a former smoker with a 28 pack year smoking history. Additional history: None. TECHNIQUE: Low dose CT scan of the chest was performed without intravenous contrast using helical scanning technique. The exam extends from the lung apices through the lung bases. Automatic exposure control was used as a dose optimization technique. NOTE: This study was performed for the specific purposes of lung cancer screening and is not an alternative to diagnostic chest CT. RADIATION DOSE: CT dose index volume (CTDIvol) = 1.68 mGy COMPARISON: 01/12/2023, 10/12/2022, 10/20/2017 FINDINGS: SMOKING RELATED LUNG DISEASE: Mild emphysema. Mild biapical pleuroparenchymal scarring. Hyperinflation. LUNG NODULES: Previously documented nodules are as follows: 4.5 mm nodule right apex image 32, stable. 3 mm nodule lateral right apex image 36, stable. Juxtapleural nodules lateral right apex image 49, 3 mm, stable. Juxta fissural nodule right minor fissure image 140, stable. No new suspicious pulmonary nodule within either lung. CORONARY ARTERY CALCIFICATION: Minimal OTHER: There is no pneumonic consolidation. Subsegmental scarring and atelectasis noted. Central airways widely patent. The thyroid gland is partially visualized, unremarkable. There is no mediastinal or hilar lymphadenopathy. The esophagus is unremarkable. The heart is normal in size without pericardial effusion. The thoracic aorta is normal in caliber. There is no axillary lymphadenopathy. Visualized chest wall is unremarkable. The included upper abdomen reveals no significant incidental findings. There is cervical and thoracic spondylosis with degenerative disc disease. Endplate sclerosis T10-11 appears slightly greater than on the previous examination. IMPRESSION: Mild emphysema. Stable pulmonary nodules. No new suspicious nodularity. Additional findings as above Lung-RADS category 2: Benign appearance or behavior. Recommendation: Low dose Screening CT of chest in 12 months. THIS IS AN ELECTRONICALLY VERIFIED FINAL REPORT 04/25/2024 10:03 AM - Electronically signed by Sherry Christiansen M.D. TW: Report ID: [id number] Reading Location: [place] [address] Procedure Note Sherry Christiansen MD - 04/25/2024 EXAM DESCRIPTION: CT LUNG CANCER SCREENING REASON FOR STUDY: Screening CT of the chest in a former smoker with a28 pack year smoking history. Additional history: None. TECHNIQUE: Low dose CT scan of the chest was performed without intravenous contrast using helical scanning technique. The exam extends from the lung apices through the lung bases. Automatic exposure control was used as adose optimization technique. NOTE: This study was performed for the specific purposes of lung cancer screening and is not an alternative to diagnostic chest CT. RADIATION DOSE: CT dose index volume (CTDIvol) = 1.68 mGy COMPARISON: 01/12/2023, 10/12/2022, 10/20/2017 FINDINGS: SMOKING RELATED LUNG DISEASE: Mild emphysema. Mild biapical pleuroparenchymal scarring. Hyperinflation. LUNG NODULES: Previously documented nodules are as follows: 4.5 mm nodule right apex image 32, stable. 3 mm nodule lateral right apex image 36, stable. Juxtapleural nodules lateral right apex image 49, 3 mm, stable. Juxta fissural nodule right minor fissure image 140, stable. No new suspicious pulmonary nodule within either lung. CORONARY ARTERY CALCIFICATION: Minimal OTHER: There is no pneumonic consolidation. Subsegmental scarring and atelectasis noted. Central airways widely patent. The thyroid gland is partially visualized, unremarkable. There is no mediastinal or hilar lymphadenopathy. The esophagus is unremarkable. The heart is normal insize without pericardial effusion. The thoracic aorta is normal in caliber.There is no axillary lymphadenopathy. Visualized chest wall is unremarkable.The included upper abdomen reveals no significant incidental findings. Thereis cervical and thoracic spondylosis with degenerative disc disease.Endplate sclerosis T10-11 appears slightly greater than on the previousexamination. IMPRESSION: Mild emphysema. Stable pulmonary nodules. No new suspicious nodularity. Additional findings as above Lung-RADS category 2: Benign appearance or behavior. Recommendation: Low dose Screening CT of chest in 12 months. THIS IS AN ELECTRONICALLY VERIFIED FINAL REPORT 04/25/2024 10:03 AM - Electronically signed by Sherry Christiansen M.D. TW: MONIQUE Report ID: [id number] Reading Location: [place] [address] Kim Cotter NP IMG CT PROCEDURES Final Result * Screening Mammogram Bilateral W Alirio (04/20/2022 8:37 AM CDT) Anatomical Region Laterality Modality Breast Bilateral Mammography 04/20/2022 8:42 AM CDT Impressions 04/20/2022 8:42 AM CDT There is no mammographic evidence of malignancy. A 1 year screening mammogram is recommended. BI-RADS: 1 - Negative. The patient has been or will be contacted. The patient will be entered into a reminder system with a target due date of 1 year for her next mammogram. Electronically signed by: ERIK Gallego 04/20/2022 8:42 AM CDT EXAMINATION: SCREENING MAMMOGRAM BILATERAL W ALIRIO ORDERING HEALTHCARE PROVIDER: DALE LAM HISTORY: Routine screening mammography. COMPARISON: 10/12/2020, 11/12/2018, 04/27/2016. TECHNIQUE: CC and MLO views of both breasts were obtained with digital technique using digital breast tomosynthesis with C view. Computer aided detection was utilized. FINDINGS: DENSITY: The breasts are heterogeneously dense, which may obscure small masses. BREASTS: There is no new suspicious finding either breast on mammogram. Dale Lam MD IM MAMMO PROCEDURES Final Result * Pap IG, HPV-hr (01/01/2019 3:19 PM CDT) Clinical indication Comment [facility] - 01 Comment:NEGATIVE FOR INTRAEP ITHELIAL LESION OR MALIGNANCY. Specimen adequacy: Comment [facility] - 01 Comment: Satisfactory for evaluation. Endocervical and/or squamous metaplastic cells (endocervical component) are present. Clinician provided ICD10 Comment [facility] - 01 Comment:Z01.411 Performed by Comment [facility] - 01 Comment:eCle Azar, Cyto technologist . . [facility] - 01 Note: Comment [facility] - 01 Comment: The Pap smear is a screening test designed to aid in the detection of premalignant and malignant conditions of the uterine cervix. It is not a diagnostic procedure and should not be used as the sole means of detecting cervical cancer. Both false-positive and false-negative reports do occur. Test methodology Comment [facility] - 01 Comment: This liquid based ThinPrep(R) pap test was screened with the use of an image guided system. HPV, high-risk Negative Negative [facility] Comment: This high-risk HPV test detects thirteen high-risk types (16/18/31/33/35/39/45/51/52/56/58/59/68) without differentiation. Endocervical/vagi nal 01/01/2019 3:19 PM CDT 01/01/2019 Narrative [facility] - 01/03/2019 3:11 PM CDT Performed at: - [facility] [id number] Fraud Examiner: Yi Johnson MD, Phone: [phone] Performed at: - [facility] [id number] Fraud Examiner: Yi Johnson MD, Phone: [phone] Specimen Comment: No. of containers..01 ThinPrep Vial Jordan Merritt MD LAB PATHOLOGY ORDERABLES F inal Result [facility] 02 * COLONOSCOPY IMAGES (02/17/2015) Anatomical Region Laterality Modality Other Narrative 02/17/2015 Ordered by an unspecified provider. us Historical Provider GI PROCEDURE ORDERABLES F inal Result from Last 3 Months or Most Recently Relevant to Health Maintenance Insurance [employer] CHO[employer] PLUS [employer] CHOICE PLUS [employer] [place] [address] Advance Directives For more information, please contact: [phone] * Full Code (Latest Code Status on File) Date Activated Date Inactivated Comments 03/13/2019 2:07 PM 03/14/2019 3:50 PM Care Teams Bindery Supervisor Relationship Specialty Start Date End Date Dale Lam MD [address] [place] [address] PCP - General Family Medicine 10/14/24 Jordan Merritt MD [address] [place] [address] [address] [place] [address] Foreman Obstetrics and Gynecology 07/07/20
--- OUTSIDE RECORDS SUMMARY | 2025-02-09 15:30 | XMS_ITS | Encounter Summary ---
Author Organization [facility] Address [address] [facility] [address] [place] [address] Phone Care Team Providers Care Certified Tower Climber Name Role Phone Dale Lam MD Primary Care Provider [phone] Jordan Merritt MD Unavailable [phone] Po Vidal MD Primary Care Provider [phone] Dale Lam MD Primary Care Provider [phone] Encounter Details Date Type Department Care Team (Late st Contact Info) Description 10/06/2017 Orders Only [facility] ProviderBrooklyn MD [address] [place] [id number] Social History Tobacco Use Types Packs/Day Years Used Date Smoking Tobacco: Former Smokeless Tobacco: Never Comments:Smoking History Pac ks/day: 1 Packs Alcohol Use Standard Drinks/Week Comments No 0 (1 standard drink = 0.6 oz pur e alcohol) Comments No Sex and Gender Information Value Date Recorded Sex Assigned at Not on file Legal Sex Female 11:04 AM FAMILY WELFARE SOCIAL WORK PROFESSOR Gender Identity Not on file Sexual Orientation Not on file documented as of this encounter Plan of Treatment Upcoming Encounters Date Type Department Care Team (Late st Contact Info) Description 08/20/2025 11:00 AM FAMILY WELFARE SOCIAL WORK PROFESSOR Hospital Encounter [address] [address] Jeffry Lara MD [address] [facility] [address] [place] [address] 08/20/2025 11:00 AM FAMILY WELFARE SOCIAL WORK PROFESSOR - 08/20/2025 11:30 AM FAMILY WELFARE SOCIAL WORK PROFESSOR Surgery [facility] [address] [place] [id number] Jeffry Lara MD [address] [place] [address] [address] [place] [address] COLONOSCOPY Scheduled Procedures Name Priority Associated Diagnoses Date/Ti me COLONOSCOPY Encounter for screening colonoscopy 08/20/2025 11:00 AM FAMILY WELFARE SOCIAL WORK PROFESSOR documented as of this encounter Procedures Procedure Name Priority Date/Time Associated Diagnosis Comments DISCHARGE LABORATORY CUMULATIVE REPORT 10/06/2017 12:00 AM FAMILY WELFARE SOCIAL WORK PROFESSOR documented in this encounter Results * DISCHARGE LABORATORY CUMULATIVE REPORT (10/06/2017 12:00 AM FAMILY WELFARE SOCIAL WORK PROFESSOR) Narrative 10/06/2017 12:00 AM FAMILY WELFARE SOCIAL WORK PROFESSOR Ordered by an unspecified provider. Historical Provider LAB BLOOD ORDERABLES Gabby l Result documented in this encounter Visit Diagnoses Not on filedocumented in this encounter Additional Health Concerns Infection Onset Date Last Indicated Resolved Time COVID: Suspected 09/04/2020 09/04/2020 09/06/2020 3:55 AM FAMILY WELFARE SOCIAL WORK PROFESSOR COVID19 09/04/2020 09/04/2020 09/18/2020 3:07 AM FAMILY WELFARE SOCIAL WORK PROFESSOR COVID: Recovered Comment:Added based on recent COVID infection. 09/18/2020 10/12/2020 01/16/2021 3:07 AM C DT COVID: Suspected 01/28/2022 01/28/2022 01/28/2022 1:38 PM CDT COVID: Suspected 03/02/2022 03/02/2022 03/02/2022 10:11 AM CDT COVID19 03/02/2022 03/02/2022 03/12/2022 3:05 AM CDT COVID: Recovered Comment:Added based on recent COVID infection. 03/12/2022 03/21/2022 07/10/2022 3:05 AM C DT COVID: Suspected 10/28/2022 10/28/2022 10/28/2022 11:52 AM FAMILY WELFARE SOCIAL WORK PROFESSOR COVID: Suspected 10/14/2024 10/14/2024 10/14/2024 11:21 AM FAMILY WELFARE SOCIAL WORK PROFESSOR documented as of this encounter Care Teams Certified Tower Climber Relationship Specialty Start Date End Date Dale Lam MD PCP - General 12/30/16 04/02/24 Po Vidal MD [address] [facility] [address] [place] [address] PCP - General Family Practice 04/03/24 10/13/24 Dale Lam MD [address] [facility] [address] [place] [address] PCP - General Family Medicine 10/14/24 Jordan Merritt MD [address] [place] [address] [address] [place] [address] Csr Technician Obstetrics and Gynecology 07/07/20 documented as of this encounter
--- OUTSIDE RECORDS SUMMARY | 2025-02-09 15:30 | XMS_ITS | Clinical Summary ---
Author Organization [facility] Address [address] [place] [address] Care Team Providers Care Patient Insurance Clerk Name Role Phone Jordan Merritt MD Unavailable [phone] Dale Lam MD Primary Care Provider [phone] Allergies Active Allergy Reactions Criticality Noted Date [...] (07/16/2021): Added automatically from request for surgery [id number] COVID-19 virus infection 09/10/2020 Vitamin B12 deficiency 02/16/2018 Vitamin D deficiency 02/16/2018 Chronic midline low back pain with left-sided sc iatica 08/18/2017 Attention deficit hyperactiv ity disorder (ADHD), combined type 11/13/2015 Overview (01/06/2017): Attention deficit hyperactivity disorder, combined type Assessment & Plan (09/15/2022 1:31 PM PAUNCH TRIMMER): Stable, continues Adderall Refilled today for patient Herpes simplex virus (HSV) infection 05/05/2015 Overview (01/06/2017): Herpes simplex Asthma 07/25/2013 Overview (01/06/2017): Asthma Resolved Problems Problem Noted Date Diagnosed Date Resolved Date Menometrorrhagia 01/03/2019 05/14/2019 Overview (01/03/2019): Added automatically from request for surgery [id number] Dyspareunia, female 01/03/2019 05/14/20 19 Overview (01/03/2019): Added automatically from request for surgery [id number] Chronic pelvic pain in female 01/03/2019 05/14/2019 Overview (01/03/2019): Added automatically from request for surgery [id number] Pelvic pain in female 01/03/20192018 Overview (01/03/2019): Added automatically from request for surgery [id number] Abdominal adhesions 05/14/20 19 Adhesions of uterus 05/14/20 19 Adnexal adhesions 05/14/2019 Encounters Date Type Department Care Team Description 02/03/2025 9:00 AM CDT Office Visit [facility] Primary [facility] at [address] [phone] Dale Lam MD Attention deficit hyperactivity disorder (ADHD), combined type (Primary Dx) 02/03/2025 Orders Only [facility] at [address] [phone] Dale Lam MD Mixed hyperlipidemia (Primary Dx) 01/09/2025 Results Follow-Up [facility] at [address] [phone] Dale Lam MD 01/07/2025 Telephone [facility] at [address] [phone] Dale Lam MD Test Results 01/06/2025 12:00 PM CDT Lab [facility] Outpatient Lab at [address] [phone] Well adult exam (Primary Dx) 01/06/2025 11:49 AM CDT - 01/06/2025 11:59 PM CDT Hospital Encounter [address] [address] Need for hepatitis C screening test; Need for hepatitis B screening test; Type 2 diabetes mellitus with hyperglycemia, without long-term current use of insulin (HCC); Screening, lipid; Screening for thyroid disorder; Well adult exam Discharge Disposition: Discharge to home or self care 01/06/2025 11:15 AM CDT Office Visit [facility] Primary Care at [address] [phone] Dale Lam MD Well adult exam (Primary Dx); Screening, lipid; Screening for thyroid disorder; Type 2 diabetes mellitus with hyperglycemia, without long-term current use of insulin (HCC); Need for hepatitis B screening test; Need for hepatitis C screening test; Need for vaccination; Colon cancer screening 01/06/2025 Telephone [facility] G[facility] at [address] [place] [address] Jeffry Lara MD from Last 3 Months Immunizations Immunization Administration Dates Next Due Influenza, [...] Pcv20 01/06/2025 Tdap 07/07/2020 ZOSTER Recombinant 01/06/2025 Surgical History Surgery Date Site/Laterality Comments TONSILLECTOMY tonsillectomy SALPINGECTOMY 10/02/1993 - 10/01/1994 Right salpingectomy OTHER SURGICAL HISTORY 10/02/1990 - 10/01/1991 : REDUCTION MAMMOPLASTY breast reduction HYSTERECTOMY 03/13/2019 Total laparoscopic hysterectomy, left salpingectomy and lysis of extensive dense adhesions. REDUCTION MAMMAPLASTY 10/02/2004 - 10/01/2005 Bilateral Medical History Medical History Date Comments Hx Other Medical 07/1991 Abdominal cramping Abnormal mens trual period Asthma ADHD (attention deficit hyperactivity disorder) Family History Medical History Relation Name Comments Hypertension Father Carl Garcia Hypertension; Hypertension Mother Laura Garcia Hypertension; Heart disease Paternal Grandmother Mali Garcia Heart disease; Cervical cancer Sister Cancer, cerv ical; Relation Name Status Comments Father Carl Garcia Mother Laura Garcia Paternal Grandmother Mali Garcia Sister Social History Tobacco Use Types Packs/Day Years [...] week 07/07/2020 How often do you attend chur ch or samaritan services? More than 4 times per year 07/07/2020 Do you belong to any clubs o r organizations such as orthodoxy groups, unions, fraternal or athletic groups, or [...] staff should administer the PHQ-9) 0 01/06/2025 [facility] - Occupational Stress [...] on file Legal Sex Female 11:04 AM PAUNCH TRIMMER Gender Identity Not on file Sexual Orientation Not on file Occupation Industry Job Start Date Job End Date Not on file Not on file Not on file Not on file Obstetrics History Para Term AB IAB SAB Ectopic Multiple Livin g Live Births 3 1 1 2 1 1 0 1 Date Outcome GA Total Labor Labor/2nd/3rd Weight Sex Type Anes PTL Daja A1 A5 Name Clin Term SAB Ectopic Last Filed Vital Signs Vital Sign Reading [...] st Contact Info) Description 08/20/2025 11:00 AM PAUNCH TRIMMER Hospital Encounter [address] [address] Jeffry Lara MD [address] [place] [address] 08/20/2025 11:00 AM PAUNCH TRIMMER - 08/20/2025 11:30 AM PAUNCH TRIMMER Surgery [address] [address] Jeffry Lara MD [address] [place] [address] COLONOSCOPY Scheduled Procedures Name Priority Associated Diagnoses Date/Ti me COLONOSCOPY Encounter for screening colonoscopy 08/20/2025 11:00 AM PAUNCH TRIMMER Health Maintenance Due Date Last Done Comments Dilated Eye Exam 1970 Colon Cancer Screening-Colonoscopy 02/17/2025 02/17/2015, 02/17/2015 Lung Cancer Screening 04/25/2025 04/24/2024 , 01/12/2023, 10/12/2022 Hemoglobin A1C 07/08/2025 01/06/2025 Breast Cancer Screening-Mammogram 10/13/2025 04/20/2022, 10/12/2020, 11/12/2018, Additional history exists Postponed from 04/20/2023 (Patient declined, but will receive in the future) Albumin Creatinine Ratio, Urine 01/06/2026 01/06/2025 Depression Screening 01/06/2026 01/06/2025, 12/14/2022, 09/15/2022, Additional history exists Foot Exam 01/06/2026 01/06/2025 Lipid Panel 01/06/2026 01/06/2025, 09/01, 03/21/2022, Additional history exists Regular Well Visit/Exam 18-64 01/06/2026 01/06/2025, 09/15/2022, 03/26/2021, Additional history exists Zoster Vaccine (2 of 2) 01/06/2026 01/06/2025 Post poned from 03/03/2025 (Insurance / Financial) eGFR 01/06/2026 01/06/2025, 09/01, 03/21/2022, Additional history exists DTaP/Tdap/Td Vaccine (2 - Td or Tdap) 07/07/2030 07/07/2020 Cervical Cancer Screening Discontinued 01/01/2019 Covid-19 Vaccine Discontinued 01/05/2021, 12/08/2020 Influenza Vaccine Completed 07/17/2024, , 07/07/2020, Additional history exists Hepatitis B Screening Completed 01/06/2025 Hepatitis C Screening Completed 01/06/2025 Pneumococcal vaccine <65 Completed 01/06/2025 Procedures Procedure Name Priority Date/Time Associated Diagnosis [...] Results * eGFR (01/06/2025 11:49 AM CDT) Pathologist [facility] eGFR >90 >=60 mL/min/1. 73 m2 Comment: [...] Lam MD LAB BLOOD ORDERABLES Final Result [facility] [address] [place] [address] * Differential, auto (01/06/2025 11:49 AM CDT) Pathologist [facility] Neutrophil abs 2.88 1.50 - 6.50 K/cumm Imm gran abs 0.01 0.00 - 0.10 K/cumm [facility] Lymphocyte abs 1.83 0.80 - 3.30 K/cumm [facility] Monocyte abs 0.48 0.20 - 0.80 K/cumm [facility] Eosinophil abs 0.07 0.00 - 0.50 K/cumm [facility] Basophil abs 0.04 0.00 - 0.10 K/cumm [facility] Neutrophil pct 54.2 % [facility] Comment: Interpretive Data Percent cell count reference ranges are not reported, since discordance with absolute values may lead to misinterpretation of CBC data. Current Interpretive Data was last revised on 2018. Imm gran pct 0.2 % [facility] Comment: Interpretive Data Percent cell count reference ranges are not reported, since discordance with absolute values may lead to misinterpretation of CBC data. Current Interpretive Data was last revised on 2018. Lymphocyte pct 34.5 % [facility] Comment: Interpretive Data Percent cell count reference ranges are not reported, since discordance with absolute values may lead to misinterpretation of CBC data. Current Interpretive Data was last revised on 2018. Monocyte pct 9.0 % [facility] Comment: Interpretive Data Percent cell count reference ranges are not reported, since discordance with absolute values may lead to misinterpretation of CBC data. Current Interpretive Data was last revised on 2018. Eosinophil pct 1.3 % [facility] Comment: Interpretive Data Percent cell count reference ranges are not reported, since discordance with absolute values may lead to misinterpretation of CBC data. Current Interpretive Data was last revised on 2018. Basophil pct 0.8 % [facility] Comment: Interpretive Data Percent cell count reference ranges are not reported, since discordance with absolute values may lead to misinterpretation of CBC data. Current Interpretive Data was last revised on 2018. Blood 01/06/2025 11:4 9 AM CDT 01/06/2025 11:12 PM CDT Dale Lam MD LAB BLOOD ORDERABLES Final Result Performing Organization Address [facility] Co de Phone Number [facility] [address] [place] [address] * Thyroid Function Kaufman (01/06/2025 11:49 AM CDT) TSH 1.55 0.30 - 4.20 mcIUnit/mL Blood 01/06/2025 11:4 9 AM CDT 01/06/2025 11:12 PM CDT Dale Lam MD LAB BLOOD ORDERABLES Final Result Performing Organization Address City/[facility] Co de Phone Number MICHEAL [facility] [address] [address] [place] [address] * (ABNORMAL) CBC with auto differential (01/06/2025 11:49 AM CDT) [facility] WBC 5.31 3.80 - 9.90 K/cumm Hgb 13.2 11.9 - 15.5 g/dL [facility] Hct 41.0 35.6 - 45.5 % [facility] Plt 261 150 - 400 K/cumm [facility] MPV 11.0 9.1 - 12.3 fL [facility] RBC 4.43 3.90 - 5.20 M/cumm [facility] MCV 92.6 81.3 - 96.4 fL [facility] MCH 29.8 27.1 - 33.3 pg [facility] MCHC 32.2(L) 32.3 - 35.7 g/dL [facility] RDW CV 12.3 11.1 - 14.9 % [facility] RDW SD 42.2 35.7 - 48.1 fL [facility] NRBC abs 0.00 0.00 - 0.01 K/cumm [facility] Blood 01/06/2025 11:4 9 AM CDT 01/06/2025 11:12 PM CDT Dale Lam MD LAB BLOOD ORDERABLES Final Result Performing Organization Address [facility] Co de Phone Number MICHEAL [facility] [address] [place] [address] * Hepatitis C antibody Blood (01/06/2025 11:49 AM CDT) [facility] Hep C Ab Nonreactive Nonreactive Comment: Interpretive [...] GENERAL ORDERABLES Final Result Performing Organization Address City/[facility]/ZIP Co de Phone Number MICHEAL MONIQUE [address] [place] [address] * Albumin Creatinine Ratio, Urine (01/06/2025 11:49 AM CDT) Albumin Ur <12.0 mg/L Comment: Interpretive Data No reference range established. Current interpretive data was last revised 2019. Creatinine Ur 139.8 mg/dL [facility]AL Comment: Interpretive Data No reference range established. Current interpretive data was last revised 2019. Albumin Creatinine Ratio, Ur <9 1 - 29 mg/g [facility] Urine 01/06/2025 11:4 9 AM CDT 01/06/2025 11:12 PM CDT Dale Lam MD LAB URINE ORDERABLES Final Result Performing Organization Address [facility] Co de Phone Number KATHYADIM[facility] [address] [place] [address] * Hepatitis B core antibody, total Blood (01/06/2025 11:49 AM CDT) Hep B core IgG/IgM Nonreactive Nonreactive Comment:Testing performed by : [facility], [address], [place]., [address] Blood 01/06/2025 11:4 9 AM CDT 01/07/2025 10:08 AM CDT Dale Lam MD LAB MICROBIOLOGY - GENERAL ORDERABLES Final Result [facility] [address] [place] [address] * Hepatitis B surface antibody (immune status) [...] Organization Address [facility] Co de Phone Number MICHEAL [address] [place] [employer] [address] * Hepatitis B Surface Antigen Blood (01/06/2025 11:49 AM CDT) HepBsAg Nonreactive Nonreactive Blood 01/06/2025 11:4 9 AM CDT 01/06/2025 11:12 PM CDT Dale Lam MD LAB MICROBIOLOGY - GENERAL ORDERABLES Final Result Performing Organization Address [facility] [place] [address] [address] [place] [address] * (ABNORMAL) Cholesterol, LDL, direct (01/06/2025 11:49 [...] CDT 01/06/2025 11:22 PM CDT Narrative MICHEAL - 01/07/2025 12:20 AM CDT Cholesterol, LDL, direct reflexed based on Elevated Triglyceride (>400) Dale Lam MD LAB BLOOD ORDERABLES Final Result Performing Organization Address [facility] de Phone Number [facility] [address] [employer] [place], [place] [id number] * (ABNORMAL) Hemoglobin A1c (01/06/2025 11:49 AM CDT) Hgb A1C 5.7(H) 4.0 - 5.6 % Estimated Average Glucose 117 mg/dL MICHEAL Comment: The ADA recommends reporting an estimated Average Glucose (eAG) with all Hemoglobin A1c results using the equation derived from a study of 507 normal and diabetic adults. Minority populations were underrepresented and children were not included. (Diabetes Care 31:5312-8849, 2008). The eAG is not equivalent to a fasting glucose. Blood 01/06/2025 11:4 9 AM CDT 01/06/2025 11:12 PM CDT Dale Lam MD LAB BLOOD ORDERABLES Final Result Performing Organization Address City/[facility] Co de Phone Number [facility] [address] [address] [place] [address] * (ABNORMAL) Lipid panel (01/06/2025 11:49 AM [...] on 2018. HDL 40 >=40 mg/dL MICHEAL Comment: Interpretive Data Ages < or = [...] mg/dL High: >160 mg/dL Calculated using the Pillai LDL-C estimating equation. This equation was implemented [...] revised on 2024. Non-HDL Cholesterol 194 mg/dL [facility] Comment: Interpretive Data Ages < or = [...] revised on 2018. Chol/HDL ratio 6 [facility] Blood 01/06/2025 11:4 9 AM CDT 01/06/2025 11:12 PM CDT us Dale Lam MD LAB BLOOD ORDERABLES Final Result [facility] [address] Department [place] [address] * Comprehensive metabolic panel (01/06/2025 11:49 AM CDT) Sodium 142 135 - 145 mmol/L Potassium, pl 3.8 3.3 - 4.9 mmol/L [facility] Chloride 100 97 - 110 mmol/L [facility] CH CO2 31 22 - 32 mmol/L [facility] CH Anion gap 11 2 - 15 mmol/L [facility] CH BUN 16 6 - 25 mg/dL [facility] CH Creatinine 0.67 0.60 - 1.10 mg/dL [facility] Glucose 84 70 - 199 mg/dL [facility] Comment: Interpretive Data Fasting glucose >/= 126 [...] classification and Diagnosis of Diabetes Diabetes Care 2021; 46: S19-S40. Current interpretive data was last [...] LAB BLOOD ORDERABLES Final Result [facility] [address] [place] [address] * CT Lung Cancer Screening (04/24/2024 4:45 PM CDT) Anatomical Region Laterality Modality Chest N/A Computed Tomogra phy 04/25/2024 9:5 0 AM CDT Narrative 04/25/2024 10:03 AM CDT [...] Sherry Christiansen M.D. TW: MONIQUE Report ID: [id number] Reading Location: [id number] Procedure Note Sherry Christiansen MD - 04/25/2024 [...] Sherry Christiansen M.D. TW: MONIQUE Report ID: [id number] Reading Location: [id number] Kim Ctoter NP Aakash CT PROCEDURES Final Result * Screening Mammogram [...] her next mammogram. Electronically signed by: ERIK ALFORD Lashonda 04/20/2022 8:42 AM CDT EXAMINATION: SCREENING MAMMOGRAM [...] new suspicious finding either breast on mammogram. us Dale Lam MD IMG MAMMO PROCEDURES Final Result * Pap IG, HPV-hr (01/01/2019 3:19 PM CDT) Clinical indication Comment [facility] - 01 Comment:NEGATIVE FOR INTRAEP ITHELIAL LESION OR MALIGNANCY. Specimen adequacy: Comment [facility] - 01 Comment: Satisfactory for evaluation. Endocervical and/or squamous metaplastic cells (endocervical component) are present. Clinician provided ICD10 Comment [facility] - 01 Comment:Z01.411 Performed by Comment [facility] - 01 Comment:Cele Azar, Cyto technologist . . [facility] - [...] system. HPV, high-risk Negative Negative LAB [facility] 02 Comment: This high-risk HPV test detects thirteen high-risk types (16/18/31/33/35/39/45/51/52/56/58/59/68) without differentiation. Endocervical/vagi nal 01/01/2019 3:19 PM CDT 01/01/2019 Narrative [facility] - 01/03/2019 3:11 PM CDT Performed at: - [address] [id number] Lockstitch Cup Setter: Yi Johnson MD, Phone: [phone] Performed at: - [facility] [id number] Lockstitch Cup Setter: Yi Johnson MD, Phone: [phone] Specimen Comment: No. of containers..01 ThinPrep Vial Jordan Merritt MD LAB PATHOLOGY ORDERABLES F inal Result [facility] - 01 [facility] 02 * COLONOSCOPY IMAGES (02/17/2015) Anatomical Region Laterality Modality Other Narrative 02/17/2015 Ordered by an unspecified provider. Historical Provider GI PROCEDURE ORDERABLES F inal Result from Last 3 Months or Most Recently Relevant to Health Maintenance Insurance [facility] PLUS [facility] H[facility]/PPO Address: [facility] [address] [place] [address] [facility]US [facility] H[facility]/PPO Address: [address] [address] [place] [id number] [facility] CHO[facility]US [facility] H[facility]/PPO Address: [address] [place] [address] Advance Directives For more information, please contact: [phone] * Full Code (Latest Code Status on File) Date Activated Date Inactivated Comments 03/13/2019 2:07 PM 03/14/2019 3:50 PM Care Teams Patient Insurance Clerk Relationship Specialty Start Date End Date Dale Lam MD [address] [place] [address] PCP - General Family Medicine 10/14/24 Jordan Merritt MD [address] [place] [address] [address] [place], [place] [address] [address] Director [employer] Obstetrics and Gynecology 07/07/20
--- OUTSIDE RECORDS SUMMARY | 2025-02-09 15:30 | XMS_ITS | Clinical Summary ---
Author Organization [facility] Address [address] [place] [address] Phone Care Team Providers Care Sign Out Clerk Name Role Phone Mita Post DO Primary Care Provider [phone] Allergies Active Allergy Reactions Criticality Noted Date Comments Ampicillin Hives 01/11/2022 Penicillins Hives,Vomiting Medium 01/11/2022 Reaction: Hives, , Reaction: Vomiting, Reaction: Hives, , Reaction: Vomiting, Reaction: Hives, , Reaction: Vomiting, Medications Adderall XR 20 MG CAPSULE SR 24 HR TAKE 1 CAPSULE BY MOUTH TWICE DAILY 11/11/2021 Active promethazine-de xtromethorphan (PROMETHAZINE-D M) 6.25-15 MG/5ML SyrupIndication s:Bronchitis Take 5 mL by mouth every 4 hours as needed for Cough. 240 mL 01/11/2022 Active predniSONE (DELTASONE) 10 MG TabletIndicatio ns:Bronchitis Take 4 tab PO daily x 2 days, 3 tab PO daily x 2 days, 2 tab PO daily x 2 day, 1 tab PO daily x 2 days. 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 Gender Identity Not on file Sexual Orientation Not on file Last Filed Vital Signs Vital Sign Reading Time Taken Comments Blood Pressure 120/64 01/11/2022 12:09 PM CDT Pulse 74 01/11/2022 12:09 PM CDT Temperature 36.7 C (98.1 F) 01/11/2022 12:09 PM CDT Respiratory Rate 20 01/11/2022 12:09 PM CDT Oxygen Saturation 97% 01/11/2022 12:09 PM CDT Inhaled Oxygen Concentration - - Weight 78.5 kg (173 lb) 01/11/2022 12:09 PM CDT Height - - Body Mass Index - - Plan of Treatment Health Maintenance Due Date Last Done Comments Hepatitis C Virus (HCV) Screening 1972 Hepatitis B Immunization (1 of 3 - 19+ 3-dose series) 1991 Pneumococcal Immunization (50+ years) (1 of 2 - PCV) 1991 Colonoscopy 2017 Colorectal Cancer Screening 2017 Cologuard 2022 Immunochemical Fecal Occult Blood 2022 Zoster Immunization (1 of 2) 2022 Influenza Immunization (#1) 06/02/202403/2020, 08/21/2018, 08/18/2017, Additional history exists SARS-COV-2 Immunization ( season) 2024 01/05/2021, 12/08/2020 Respiratory Syncytial Virus (RSV) Immunization (Adult) (1 - 1-dose 75+ series) 2047 DTaP/Tdap/Td Immunization Discontinued 07/07/2020 TdaP Immunization Completed 07/07/2020 Meningococcal Immunization (ACWY) Aged Out No longer eligible based on patient's age to complete this topic Rotavirus Immunization Aged Out No lo nger eligible based on patient's age to complete this topic Insurance [facility] Care Teams Sign Out Clerk Relationship Specialty Start Date End Date Mita Post DO [address] [place] [id number] PCP - General Family Medicine 09/18/15
--- OUTSIDE RECORDS SUMMARY | 2025-02-09 15:30 | XMS_ITS | Encounter Summary ---
Author Organization [facility] Healthcare Address [address] [place] [address] Care Team Providers Care Acid Leveler Name Role Phone Dale Lam MD Primary Care Provider [phone] Jordan Merritt MD Unavailable [phone] Po Vidal MD Primary Care Provider [phone] Dale Lam MD Primary Care Provider [phone] Encounter Details Date Type Department Care Team (Late st Contact Info) Description 01/11/2023 Telephone [facility] [address] [place] [id number] Annette Rowan, RT Social History Tobacco Use Types Packs/Day Years Used Date Smoking Tobacco: Former Cigarettes 989 - 2017 Smokeless Tobacco: Never Comments:Smoking History Pac ks/day: [...] often do you attend chur ch or catholic services? More than 4 times per year 07/07/2020 Do you belong to any clubs o r organizations such as faith groups, unions, fraternal or athletic groups, or school groups? No 07/07/2020 How often do you attend meet ings of the clubs or organizations you belong to? Never 07/07/2020 Are you , , di vorced, , never , or living with a partner? 07/07/2020 Overall Financial Resource Strain (CARDIA) Answe r Date Recorded How hard is it for you to pa y for the very basics like food, housing, medical care, and heating? 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 Gender Identity Not on file Sexual Orientation Not on file Occupation Industry Job Start Date Job End Date Not on file Not on file Not on file Not on file documented as of this encounter Plan of Treatment Upcoming Encounters Date Type Department Care Team (Late st Contact Info) Description 08/20/2025 11:00 AM SUPERVISOR GRAPHITE Hospital Encounter [address] [address] Jeffry Lara MD [address] [facility] [place] [address] 08/20/2025 11:00 AM SUPERVISOR GRAPHITE - 08/20/2025 11:30 AM SUPERVISOR GRAPHITE Surgery [address] [address] Jeffry Lara MD [address] [facility] [place] [address] COLONOSCOPY Scheduled Procedures Name Priority Associated Diagnoses Date/Ti me COLONOSCOPY Encounter for screening colonoscopy 08/20/2025 11:00 AM SUPERVISOR GRAPHITE documented as of this encounter Visit Diagnoses Not on filedocumented in this encounter Additional Health Concerns Infection Onset Date Last Indicated Resolved Time COVID: Suspected 10/14/2024 10/14/2024 10/14/2024 11:21 AM SUPERVISOR GRAPHITE documented as of this encounter Care Teams Acid Leveler Relationship Specialty Start Date End Date Dale Lam MD PCP - General 12/30/16 04/02/24 Po Vidal MD [address] [place] [address] PCP - General Family Practice 04/03/24 10/13/24 Dale Lam MD [address] [place] [address] PCP - General Family Medicine 10/14/24 Jordan Merritt MD [address] [place] [address] [address] [address] Etl Architect Obstetrics and Gynecology 07/07/20 documented as of this encounter
--- OUTSIDE RECORDS SUMMARY | 2025-02-09 15:30 | XMS_ITS ---
Author Organization [facility] Address [address] [place] [address] Care Team Providers Care Central Office Operator Name Role Phone Jordan Merritt MD Unavailable [phone] Dale Lam MD Primary Care Provider [phone] Active Problems Problem Noted Date Diagnosed Date [...] (07/16/2021): Added automatically from request for surgery [id number] COVID-19 virus infection 09/10/2020 Vitamin B12 deficiency 02/16/2018 Vitamin D deficiency 02/16/2018 Chronic midline low back pain with left-sided sc iatica 08/18/2017 Attention deficit hyperactiv ity disorder (ADHD), combined type 11/13/2015 Overview (01/06/2017): Attention deficit hyperactivity disorder, combined type Assessment & Plan (09/15/2022 1:31 PM STRIPPER BLACK AND WHITE): Stable, continues Adderall Refilled today for patient Herpes simplex virus (HSV) infection 05/05/2015 Overview (01/06/2017): Herpes simplex Asthma 07/25/2013 Overview (01/06/2017): Asthma Current Treatment and Therapy Plans No current plan information found. Past Treatment and Therapy Plans No past plan information found. Lifetime Dose Tracking * Chemical Lifetime Dose Automatic Entry Manual Entr y DLP 158.6 mGycm 158.6 mGycm 0 mGycm CTDIvol 5.22 mGy 5.22 mGy 0 mGy Resolved Problems Problem Noted Date Diagnosed Date Resolved Date Menometrorrhagia 01/03/2019 05/14/2019 Overview (01/03/2019): Added automatically from request for surgery [id number] Dyspareunia, female 01/03/2019 05/14/20 19 Overview (01/03/2019): Added automatically from request for surgery [id number] Chronic pelvic pain in female 01/03/2019 05/14/2019 Overview (01/03/2019): Added automatically from request for surgery [id number] Pelvic pain in female 01/03/20192018 Overview (01/03/2019): Added automatically from request for surgery [id number] Abdominal adhesions 05/14/20 19 Adhesions of uterus 05/14/20 19 Adnexal adhesions 05/14/2019
--- OUTSIDE RECORDS SUMMARY | 2025-02-09 15:30 | XMS_ITS | Encounter Summary ---
Author Organization [facility] Address [address] [facility] [place] [address] Care Team Providers Care Equipment Operator Wage Hand Name Role Phone Unavailable Primary Care Provider Unavailabl e Encounter Details Date Type Department Care Team (Late st Contact Info) Description 10/22/2020 Lab Requisition [facility] [address] [place] [id number] Sanford Granados MD [address] [place] [address] Social History Tobacco Use Types Packs/Day Years Used Date Smoking Tobacco: Never Assessed Comments No Sex and Gender Information Value Date Recorded Sex Assigned at Not on file Legal Sex Female 7:11 PM QUARRY MANAGER Gender Identity Not on file Sexual Orientation Not on file documented as of this encounter Plan of Treatment Not on file documented as of this encounter Procedures Procedure Name Priority Date/Time Associated Diagnosis Comments DERMATOPATHOLOGY Routine 10/20/2020 3:27 AM QUARRY MANAGER documented in this encounter Results * DERMATOPATHOLOGY (10/20/2020 3:27 AM QUARRY MANAGER) Case Report Dermatopathology Report Case: [id number] Authorizing Provider: Sanford Granados MD Collected: 10/20/2020 03:27 AM Ordering Location: [facility] Received: 10/22/2020 10:29 AM Pathologist: Sandra Daniel MD Specimens: A) - Skin, left upper arm superior B) - Skin, left uper arm inferior C) - Skin, mid upper back 12:51 PM QUARRY MANAGER DERMATOPATHOLOGY LABORATORY Final Diagnosis Specimen A. SKIN, left upper arm superior: LENTIGINOUS MELANOCYTIC NEVUS, COMPOUND TYPE, IRRITATED (COMPOUND MELANOCYTIC NEVUS WITH ARCHITECTURAL DISORDER) (D22.62) Specimen B. SKIN, left uper arm inferior: COMPOUND MELANOCYTIC NEVUS, IRRITATED (D22.62) Specimen C. SKIN, mid upper back: COMPOUND MELANOCYTIC NEVUS (D22.5) 12:51 PM [facility] Clinical History A-C: Nevus vs MM. 12:51 PM [facility] Gross Description Specimen A: Received is one formalin filled container labeled with the patient's name and designated left upper arm superior. The specimen consists of a shave biopsy measuring [id number]. Jar 0. Specimen B: Received is one formalin filled container labeled with the patient's name and designated left uper arm inferior. The specimen consists of a shave biopsy measuring [id number]. Jar 0. Specimen C: Received is one formalin filled container labeled with the patient's name and designated mid upper back. The specimen consists of a shave biopsy measuring [id number]. Jar 0. 12:51 PM [facility] Microscopic Description Specimen A. SKIN, left upper arm superior: This is a compound nevus. There is melanin pigment in the stratum corneum. There is architectural disorder characterized by a lentiginous proliferation of melanocytes between irregular nevus nests of cells along the dermal epidermal junction. There is underlying fibroplasia of the papillary dermis. The intradermal component is bland in appearance and matures with depth. (Compound Jaya's Nevus or Compound Dysplastic Nevus) Specimen B. SKIN, left uper arm inferior: There is melanin pigment in the stratum corneum. There are nests of melanocytes at the dermal-epidermal junction and within the dermis. Specimen C. SKIN, mid upper back: There are nests of melanocytes at the dermal-epidermal junction and within the dermis. 12:51 PM [facility] Disclaimer An external and internal positive and negative controls are appropriate for the histochemical, immunohistochemical and immunofluorescence stain(s) in this case (if any), except where stated explicitly. The performance characteristics of the stain(s) cited in this report were developed and its performance characteristic determined by the Dermatopathology Laboratory at [facility], directed by Dr. Kapil Long. These tests need not be, and therefore are not, approved by the [place] Food and Drug Administration. The tests are used for clinical purposes. Billing Codes Specimen Charges Stain Charges 21144 64249 52563 1 1 1 1 12:51 PM QUARRY MANAGER DERMATOPATHOLOGY LABORATORY Embedded Images 1 12:51 PM QUARRY MANAGER DERMATOPATHOLOGY LABORATORY Pathology/Cytology TISSUE SPECIMEN FROM SKIN / Unknown 10/20/2020 3:27 AM QUARRY MANAGER 10/22/2020 10:29 AM QUARRY MANAGER Miscellaneous samples (specimen) TISSUE SPECIMEN FROM SKIN / Unknown 10/20/2020 3:27 AM QUARRY MANAGER 10/22/2020 10:29 AM QUARRY MANAGER Miscellaneous samples (specimen) TISSUE SPECIMEN FROM SKIN / Unknown 10/20/2020 3:27 AM QUARRY MANAGER 10/22/2020 10:29 AM QUARRY MANAGER Sanford Granados MD LAB - PATHOLOGY/CYTOLOGY ORDER TEMO Final Result DERMATOPATHOLOGY LABORATORY [facility] - Department of Dermatology [facility] [address] [place] [address], [address] [phone] documented in this encounter Visit Diagnoses Not on filedocumented in this encounter
--- OUTSIDE RECORDS SUMMARY | 2025-02-09 15:30 | XMS_ITS | Clinical Summary ---
Author Organization [facility] [employer] Address [address] [place] [address] Care Team Providers Care Deadener Name Role Phone Unavailable Primary Care Provider Unavailabl e Source Comments [facility],non-owned Affiliates and Associated Physician Practices is amultiple site organization consisting of ambulatory clinics and hospital sitesin [place], [place], [place]. This disclosure is being madepursuant to the Care Everywhere program and may not contain all information available regarding this patient. Last updated 18.[facility] [employer] Allergies Active Allergy Reactions Criticality Noted Date Comments Codeine Rash Medium Reaction: Rash, Latex Rash Medium Reaction: Rash, Penicillins Urticaria,Vomiting Medium Reaction: Hives, , Reaction: Vomiting, Medications * Be aware that medications may not be up to date on this document. Alwaysverify current medications with the patient. amphetamine-dex troamphetamine XR 24hr (ADDERALL XR) 20 MG capsule Take one tablet twice a day 03/06/2018 Active benzonatate (TESSALON) 200 MG capsule Take 1 capsule by mouth 3 times daily as needed for Cough 30 capsule 04/01/2018 Active Social History Tobacco Use Types Packs/Day Years Used Date Smoking Tobacco: Never Assessed Comments No Sex and Gender Information Value Date Recorded Sex Assigned at Not on file Legal Sex Female 7:11 PM SLOPE RUNNER Gender Identity Not on file Sexual Orientation Not on file Last Filed Vital Signs Vital Sign Reading Time Taken Comments Blood Pressure 106/62 04/01/2018 11:46 AM CDT Pulse 92 04/01/2018 11:46 AM CDT Temperature 36.9 C (98.4 F) 04/01/2018 11:46 AM CDT Respiratory Rate - - Oxygen Saturation 98% 04/01/2018 11:46 AM CDT Inhaled Oxygen Concentration - - Weight 70.8 kg (156 lb) 04/01/2018 11:46 AM CDT Height 175.3 cm (5' 9 ) 04/01/2018 11:46 AM CDT Body Mass Index 23.04 04/01/2018 11:46 AM CDT Plan of Treatment Health Maintenance Due Date Last Done Comments COLOGUARD (AGES 45-75) - COL ON CA SCREENING 1972 COLON MONITORING 1972 COLONOSCOPY - COLON CA SCREENING 1972 CT COLONOGRAPHY - COLON CA SCREENING 1972 Colorectal Cancer Screening 1972 FIT - COLON CA SCREENING 1972 FLEX SIG - COLON CA SCREENING 1972 LIPID TESTING 1972 MAMMOGRAM 1972 HIV SCREENING 1987 HEPATITIS C SCREENING 03/07/1990 DTAP/TDAP/TD VACCINES (1 - Tdap) 1991 HEPATITIS B VACCINE (1 of 3 - 19+ 3-dose series) 1991 PNEUMOCOCCAL VACCINE 50+ (1 of 1 - PCV) 2022 ZOSTER VACCINE (1 of 2) 2022 COVID-19 VACCINE (1 - 2023-2 5 season) 2024 DEPRESSION SCREENING 10/02/2024 INFLUENZA VACCINE (Season Ended) 2025 08/18/2017, 09/15/2016 HIB VACCINE Aged Out No longer eligi ble based on patient's age to complete this topic HPV VACCINE Aged Out No longer eligi ble based on patient's age to complete this topic MENINGOCOCCAL (Group B) VACCINE SHARED DECISION-MAKING Aged Out No longer eligible based on patient's age to complete this topic MENINGOCOCCAL GROUPS A/C/Y/W VACCINE Aged Out No longer eligible b ased on patient's age to complete this topic [place] [address] [place] [address]
--- OUTSIDE RECORDS SUMMARY | 2025-02-09 15:30 | XMS_ITS | Encounter Summary ---
Author Organization [facility] Healthcare Address [address] [place] [address] Care Team Providers Care Hospital Chief Executive Officer Name Role Phone Jordan Merritt MD Unavailable [phone] Dale Lam MD Primary Care Provider [phone] Encounter Details Date Type Department Care Team (Late st Contact Info) Description 01/09/2025 Results Follow-Up [facility] Primary Care at [address] [address] Dale Lam MD [address] [place] [address] [address] [place] [address] Social History Tobacco Use Types Packs/Day Years Used Date Smoking Tobacco: Former Cigarettes 1 28 0 10/02/1988 - 2016 Smokeless Tobacco: Never Comments:Smoking History Pac ks/day: [...] often do you attend chur ch or protestant services? More than 4 times per year 07/07/2020 Do you belong to any clubs o r organizations such as mandaen groups, unions, fraternal or athletic groups, or [...] staff should administer the PHQ-9) 0 01/06/2025 [facility] [place] [facility] Occupat ional Health - Occupational Stress [...] on file Legal Sex Female 11:04 AM CONTROL SYSTEMS DRAFTING OFFICER Gender Identity Not on file Sexual Orientation Not on file Occupation Industry Job Start Date Job End Date Not on file Not on file Not on file Not on file documented as of this encounter Plan of Treatment Upcoming Encounters Date Type Department Care Team (Late st Contact Info) Description 08/20/2025 11:00 AM CONTROL SYSTEMS DRAFTING OFFICER Hospital Encounter [address] [address] Jeffry Lara MD [address] [place] [address] [address] [place] [address] 08/20/2025 11:00 AM CONTROL SYSTEMS DRAFTING OFFICER - 08/20/2025 11:30 AM CONTROL SYSTEMS DRAFTING OFFICER Surgery [address] [address] Jeffry Lara MD [address] [place] [address] [address] [place] [address] COLONOSCOPY Scheduled Procedures Name Priority Associated Diagnoses Date/Ti me COLONOSCOPY Encounter for screening colonoscopy 08/20/2025 11:00 AM CONTROL SYSTEMS DRAFTING OFFICER documented as of this encounter Visit Diagnoses Not on filedocumented in this encounter Care Teams Hospital Chief Executive Officer Relationship Specialty Start Date End Date Dale Lam MD [address] [facility] [address] [place] [address] PCP - General Family Medicine 10/14/24 Jordan Merritt MD [address] [facility] [address] [place] [address] Speech Lang Path Therapist Obstetrics and Gynecology 07/07/20 documented as of this encounter
[2025-02-09 15:32] VITALS: BP 171/94; PULSE 75; RESP 20; TEMP 36.8; O2SAT 100
--- NOTE | 2025-02-09 15:42 | ED.LOWEXIN ---
HPI - Extremity Injury (Lower) General Chief Complaint: Extremity Injury, Lower Stated Complaint: Injury right foot/ankle-fell down stairs Time Seen by Provider: 02/09/25 15:30 Source: patient Mode of arrival: wheelchair Limitations: no limitations History of Present Illness HPI Narrative: This is a 54-year-old female that presents to the emergency department after a fall with right ankle pain. Reports she tripped and fell down the last couple of steps. Reports twisting her right ankle. Reports swelling and pain in the area. She did not hit her head or lose consciousness. Reports decreased range of motion. Denies numbness. Related Data Home Medications ?Medication ?Instructions ?Recorded ?Confirmed ?Last Taken ?Type dextroamphetamine-amphetamine ER 20 mg PO BID 05/16/23 05/16/23 Unknown History 20 mg 24hr capsule,extend release (Adderall XR) montelukast 10 mg tablet 10 mg PO DAILY 05/16/23 05/16/23 Unknown History Allergies Allergy/AdvReac Type Severity Reaction Status Date / Time Penicillins Allergy Unknown Hives / Verified 02/09/25 15:28 Red Face Review of Systems Review of Systems: CONSTITUTIONAL: Denies fever MUSCULOSKELETAL: Reports joint pain, and myalgia. NEUROLOGIC: Denies numbness, or weakness. All systems reviewed & are unremarkable except as noted in HPI and below PMFSH Past Medical History Medical History Ectopic Surgical History Surgical History History of hysterectomy History of tonsillectomy and adenoidectomy History of tonsillectomy Family History Family History Father Cancer Hypertension Heart disease Mother Heart disease Grandparent Heart disease Hypertension Grandparent Cancer Hypertension Social History Social History Smoking status: Never smoker Tobacco type: e-cigarettes/vaping Alcohol intake: former Lack of Transportation: No Lack of Food: Never True Current Housing: I Have Housing Concerned About Future Housing: No Difficulty Paying Gas/Electric Bills: No Difficulty Paying for Meds: No Currently Unemployed: No Education: High School Diploma/GED Difficulty w/ Childcare or Family Care: No Living arrangements: with family Gender identity (if verbalized by the patient): Female Agree to blood products: Yes Exam Narrative: GENERAL: Well-appearing, well-nourished, and in no acute distress. HEAD: Normocephalic, atraumatic. EYES: EOMI. EXTREMITIES: Decreased active ROM in the right ankle due to pain. Swelling about the lateral malleoli. Normal DP pulse. Normal sensation SKIN: Warm, dry, no rash. NEURO: No focal deficits. Alert and oriented x3. PSYCH: Normal mood and affect Course Course Emergency Course: patient updated on her workup and agrees with plan of care Vital Signs Vital signs: Vital Signs Temperature 98.3 F 02/09/25 15:32 Pulse Rate 75 02/09/25 15:32 Respiratory Rate 20 02/09/25 15:32 Blood Pressure 171/94 H 02/09/25 15:32 Pulse Oximetry 100 02/09/25 15:32 Oxygen Delivery Room Air 02/09/25 15:32 Temperature 98.3 F 02/09/25 15:32 Pulse Rate 75 02/09/25 15:32 Respiratory Rate 20 02/09/25 15:32 Blood Pressure 171/94 H 02/09/25 15:32 Pulse Oximetry 100 02/09/25 15:32 Oxygen Delivery Room Air 02/09/25 15:32 Procedures Orthopedic Splinting/Casting Injury #1: Splinting/Casting Date: 02/09/25 Splinting/Casting Time: 16:11 Side: right Lower Extremity Injury Location: foot Splint: customized in ED OCL: short leg Pre-Procedure Neuro Vascular Exam: normal Post-Procedure Neuro Vascular Exam: normal Other Orthopedic Equipment: crutches MDM - Extremity Injury (Lower) MDM Narrative Medical decision making narrative: Patient presents to the emergency department for right foot and ankle pain after an injury just prior to arrival. She is neurovascularly intact. Right foot and ankle x-ray show a 5th metatarsal fracture. Patient placed in short-leg posterior. Given crutches. She will be given follow-up with Orthopedics. She was given warnings to return to the ER Differential Diagnosis Differential diagnosis: Likely ankle sprain and strain, ankle fracture and other (foot fracture) Imaging Data Radiologist's impression: ITS Impressions Ankle X-Ray 02/09/25 15:59 IMPRESSION: No acute osseous abnormality of the right ankle. Fracture of the midshaft of the fifth metatarsal bone. Foot X-Ray 02/09/25 16:01 IMPRESSION: Oblique fracture of the left fifth metatarsal bone. Polyarticular osteoarthritic changes. Critical Care Time Critical Care Time Critical Care Time: No Discharge Plan Discharge Clinical Impression: Fracture of fifth metatarsal bone of right foot Qualifiers: Encounter type: initial encounter Fracture type: closed Fracture alignment: displaced Qualified Code(s): S92.351A - Displaced fracture of fifth metatarsal bone, right foot, initial encounter for closed fracture Patient Disposition: Home Condition: Stable Instructions: Foot Fracture in Adults (ED) Additional Instructions: Return to the ER if you experience fever, redness and swelling of your extremity, numbness or any other symptoms that are concerning to you Wear splint and use crutches. No weight on the affected leg. Ice and elevate extremity. Pain medication as needed and directed. Follow up with orthopedics for further care. Patient Language: Faroese Prescriptions: New hydrocodone-acetaminophen 5-325 mg tablet 1 tablet PO Q6H PRN (Reason: pain) Qty: 20 0RF No Action prednisone 20 mg tablet 40 mg PO DAILY 5 Days Qty: 10 0RF baclofen 10 mg tablet 10 mg PO TID 5 Days Qty: 15 0RF montelukast 10 mg tablet 10 mg PO DAILY dextroamphetamine-amphetamine [Adderall XR] 20 mg capsule,extended release 24hr 20 mg PO BID methylprednisolone [Medrol (Parish)] 4 mg tablets,dose pack See Rx Instructions PO PER PKG DIR Qty: 21 0RF Rx Instructions: PO PER PKG DIR azithromycin 250 mg tablet See Rx Instructions PO .COMPLEX Qty: 6 0RF Rx Instructions: For 250 mg dose pack: take 500 mg today (day 1), then 250 mg for 4 days (days 2-5) PO azithromycin 250 mg tablet See Rx Instructions PO .COMPLEX Qty: 6 0RF Rx Instructions: For 250 mg dose pack: take 500 mg today (day 1), then 250 mg for 4 days (days 2-5) PO methylprednisolone [Medrol (Parish)] 4 mg tablets,dose pack See Rx Instructions PO PER PKG DIR Qty: 21 0RF Rx Instructions: PO PER PKG DIR sumatriptan succinate [Imitrex] 50 mg tablet 50 mg PO ONCE PRN (Reason: migraine headache) Qty: 14 1RF Follow-up/Referrals: Carole,Dale Purdy MD [Primary Care Provider] - Trae Ramos MD [Physician] -
[2025-02-09] MEDS: HYDROcodone/acetaminophen (*CRX) 5-325 MG TABLET 1 TAB PO (16:17)
== END 2025-02-09 16:39 | disposition home or self-care (01) ==
PROVIDERS: Emergency Provider Physician Assistant; PCP Family Medicine
DX: S92.351A Displaced fracture of fifth metatarsal bone, right foot, initial encounter for closed fracture (principal); Z90.710 Acquired absence of both cervix and uterus; Z79.899 Other long term (current) drug therapy; W10.9XXA Fall (on) (from) unspecified stairs and steps, initial encounter
CPT/HCPCS: 29515; 73610; 73630; 99284; A9270

== ENCOUNTER 2025-09-03 16:45 | Emergency (ER) | payer OTHER, SELFPAY ==
--- NOTE | ~2025-09-03 | US_ITS ---
US abdomen limited INDICATION: Right upper quadrant abdominal pain PROCEDURE: Realtime right upper abdominal ultrasound. COMPARISON: No prior studies for comparison. FINDINGS: The pancreas is normal without focal mass or pancreatic ductal dilation. Liver echotexture is increased, consistent with fatty infiltration. There is normal directional flow in the portal vein. The gallbladder is normal without stones, gallbladder wall thickening or pericholecystic fluid. Common bile duct measures 5 mm. No sonographic Mason's sign. IMPRESSION: 1: Fatty infiltration of the liver. Reviewed, dictated and finalized at location I. ETISER OPERATOR
--- NOTE | ~2025-09-03 | CT_ITS ---
EXAMINATION: CT abdomen pelvis w con DATE: 09/03/2025 18:35 INDICATION: Right upper quadrant abdominal pain TECHNIQUE: Computed tomography (CT) of the abdomen and pelvis was performed with intravenous contrast. The dose-length product was 382.80 mGy-cm. Automated exposure control and iterative reconstruction technique were employed. COMPARISON: None. FINDINGS: Lung bases unremarkable. Heart size normal. The spleen, pancreas, adrenal glands and kidneys are unremarkable. There is fatty infiltration of the liver. Gallbladder is present. Colonic diverticulosis without evidence for diverticulitis. Normal appendix. No significant vascular abnormality. No lymphadenopathy. No free air or free fluid. Moderate lower thoracic and lumbar spondylosis. IMPRESSION: 1. No acute abdominal abnormality. 2: Fatty infiltration of the liver. Reviewed, dictated and finalized at location I. TER SALES REPRESENTATIVE
[2025-09-03 16:52] VITALS: BP 136/90; PULSE 102; RESP 20; TEMP 36.5; O2SAT 98
[2025-09-03 17:15] VITALS: BP 124/85; PULSE 98; RESP 16; O2SAT 97
--- OUTSIDE RECORDS SUMMARY | 2025-09-03 17:15 | XMS_ITS | Clinical Summary ---
Author Organization [facility] Address [address] [place] [address] Care Team Providers Care Clinical Therapist Name Role Phone Jordan Merritt MD Unavailable [phone] Dale Lam MD Primary Care Provider [phone] Allergies Active Allergy Reactions Criticality Noted Date Comments Ampicillin Hives Medium Codeine Rash,Nausea & Vomiting Medium Reaction: Rash, Latex Rash Medium Reaction: Rash, Penicillins Hives,Vomiting,Urticaria Medium Reaction: Hives, , Reaction: Vomiting, Reaction: Hives, , Reaction: Vomiting, Medications multivitamin capsule Take 1 capsule by mouth daily Active albuterol HFA (Ventolin HFA) 90 mcg/actuation inhalerIndication s:Mild intermittent asthma, unspecified whether complicated Inhale 2 puffs every 6 (six) hours as needed for wheezing or shortness of breath 8 g 5 1 Active dextroamphetamine -amphetamine XR (Adderall XR) 20 mg 24 hr capsuleIndication s:Attention-Defic it Hyperactivity Disorder Take 1 capsule (20 mg total) by mouth every morning 30 capsule 5 Active SUMAtriptan (IMITREX) 50 mg tabletIndications :Migraine Take 1 tablet (50 mg total) by mouth once as needed for migraine May repeat dose once in 2 hours if no relief. Do not exceed 2 doses in 24 hours. 9 tablet 3 5 026 Active SUMAtriptan (IMITREX) 50 mg tabletIndications :Migraine Take 1 tablet (50 mg total) by mouth once as needed for migraine May repeat dose once in 2 hours if no relief. Do not exceed 2 doses in 24 hours. 9 tablet 3 2 025 Discontin ued(Reord er) dextroamphetamine -amphetamine XR (Adderall XR) 20 mg 24 hr capsuleIndication s:Attention-Defic it Hyperactivity Disorder Take 1 capsule (20 mg total) by mouth every morning 30 capsule 5 025 Discontin ued(Reord er) Active Problems Problem Noted Date Diagnosed Date Overweight (BMI 25.0-29.9) 09/01/2025 Adult ADHD 09/01/2025 Metabolic dysfunction-associ ated steatotic liver disease (MASLD) 07/23/2025 Acute otalgia 06/11/2025 Adenitis, acute 06/11/2025 Back pain 06/11/2025 Fracture of fifth metatarsal bone of right foot 06/11/2025 History of hysterectomy 06/11/2025 History of tonsillectomy and adenoidectomy 06/11 Influenza 06/11/2025 Migraine 06/11/2025 Muscle strain of left upper back 06/11/2025 Pharyngitis 06/11/2025 Elevated LFTs 06/11/2025 Encounter for screening colonoscopy 01/06/2025 Neutropenia 03/21/2022 Acute recurrent maxillary sinusitis 07/23/2021 Assessment & Plan (07/23/2021 4:07 PM CDT): Azithromycin (though it is early in the course) Continue other medications in play Start mucinex DM as well (both for cough, and drainage) Alternatively, coricidin HBP can be used with plain Mucinex COVID-19 virus infection 09/10/2020 Vitamin B12 deficiency 02/16/2018 Vitamin D deficiency 02/16/2018 Chronic midline low back pain with left-sided sc iatica 08/18/2017 Attention deficit hyperactiv ity disorder (ADHD), combined type 11/13/2015 Overview (01/06/2017): Attention deficit hyperactivity disorder, combined type Assessment & Plan (09/15/2022 1:31 PM BIODIESEL PRODUCT MANAGER): Stable, continues Adderall Refilled today for patient Herpes simplex virus (HSV) infection 05/05/2015 Overview (01/06/2017): Herpes simplex Asthma 07/25/2013 Overview (01/06/2017): Asthma Resolved Problems Problem Noted Date Diagnosed Date Resolved Date Menometrorrhagia 01/03/2019 05/14/2019 Overview (01/03/2019): Added automatically from request for surgery [id number] Dyspareunia, female 01/03/2019 05/14/20 19 Overview (01/03/2019): Added automatically from request for surgery [id number] Chronic pelvic pain in female 01/03/2019 05/14/2019 Overview (01/03/2019): Added automatically from request for surgery [id number] Pelvic pain in female 01/03/20192018 Overview (01/03/2019): Added automatically from request for surgery [id number] Abdominal adhesions 05/14/20 19 Adhesions of uterus 05/14/20 19 Adnexal adhesions 05/14/2019 Encounters Date Type Department Care Team Description 09/01/2025 10:30 AM BIODIESEL PRODUCT MANAGER Office Visit [facility] Primary Care at [address] [address] Dale Lam MD Adult ADHD (Primary Dx); Overweight (BMI 25.0-29.9) 07/28/2025 Telephone [facility] Gastroenterology at [address] [place] [address] Gloria Campbell Colonoscopy Reschedule 07/23/2025 9:45 AM CDT Office Visit [facility] Primary Care at [address] [address] Dale Lam MD Adult ADHD (Primary Dx); Prediabetes; Mild intermittent asthma, unspecified whether complicated; Screening mammogram for breast cancer; Personal history of nicotine dependence; Metabolic dysfunction-associat ed steatotic liver disease (MASLD) 06/23/2025 Results Follow-Up [facility] Primary Care at [address] [address] Miladis Noe NP US Liver 06/20/2025 9:15 AM CDT - 06/20/2025 11:59 PM CDT Hospital Encounter [facility] [address] [place] [address] Discharge Disposition: Discharge to home or self care 06/16/2025 Results Follow-Up [facility] Primary Care at [address] [address] Dale Lam MD Comprehensive metabolic panel, Lipid panel, Hemoglobin A1c, Additional followed-up results: 3 06/11/2025 4:35 PM CDT Lab [address] [address] Elevated LFTs 06/11/2025 4:15 PM CDT Office Visit [facility] Primary Care at [address] [address] Dale Lam MD Elevated LFTs (Primary Dx) 06/11/2025 9:05 AM CDT Lab [address] [address] Mixed hyperlipidemia; Type 2 diabetes mellitus with hyperglycemia, without long-term current use of insulin (HCC) from Last 3 Months Immunizations Immunization Administration Dates Next Due Influenza, Quadrivalent, Luann l Culture-based MDCK, Antibiotic Free, Intramuscular 08/21/2018 Influenza, Quadrivalent, Spl it, Intramuscular 09/15/2016 Influenza, Quadrivalent, Spl it, Preservative Free, Intramuscular 09/15/2022,07/07/2020,08/18/2017 Influenza, Trivalent, Cell Culture-based MDCK, Preservative Free, Antibiotic Free, Intramuscular 07/17/2024 Influenza, Trivalent, IM (MDV) 08/03/2013 Influenza, Trivalent, Preser vative Free, Intramuscular 07/10/2025 Influenza, Unspecified 07/16/2021(Deferr ed: Patient Refused),08/21/2018 Pfizer SARS-CoV-2 Monovalent Vaccination (12+ Yrs) PURPLE 01/05/2021,12/08/2020 Pneumococcal Conjugate Pcv20 07/10/2025,01/07/20 25 Tdap 07/07/2020 ZOSTER Recombinant 01/06/2025 Surgical History [...] or ex-partner? No 07/07/2020 Social Connection and Isolation Panel Answer Date Recorded In a typical week, how many times do you talk on the phone with family, friends, or neighbors? More than three times a week 07/07/2020 How often do you get togethe r with friends or relatives? More than three times a week 07/07/2020 How often do you attend chur or mu-ism services? More than 4 times per year 07/07/2020 Do you belong to any clubs o r organizations such as roman catholic groups, unions, fraternal or athletic groups, or [...] points, staff should administer the PHQ-9) 0 09/01/2025 [facility] - Occupational Stress Questionnaire Answer Date Recorded [...] on file Legal Sex Female 11:04 AM BIODIESEL PRODUCT MANAGER Gender Identity Not on file Sexual [...] Sign Reading Time Taken Comments Blood Pressure 116/78 09/01/2025 10:31 AM BIODIESEL PRODUCT MANAGER Pulse 79 09/01/2025 10:31 AM BIODIESEL PRODUCT MANAGER Temperature 36.5 C (97.7 F) 09/01/2025 10:31 AM BIODIESEL PRODUCT MANAGER Respiratory Rate 18 09/01/2025 10:31 AM BIODIESEL PRODUCT MANAGER Oxygen Saturation 97% 09/01/2025 10:31 AM BIODIESEL PRODUCT MANAGER Inhaled Oxygen Concentration - - Weight 82.7 kg (182 lb 4.8 oz) 09/01/2025 10:31 AM BIODIESEL PRODUCT MANAGER Height 175.3 cm (5' 9) 09/01/2025 10:31 AM BIODIESEL PRODUCT MANAGER Body Mass Index 26.92 09/01/2025 10:31 AM BIODIESEL PRODUCT MANAGER Plan of Treatment Upcoming Encounters Date Type Department Care Team (Late st Contact Info) Description 03/04/2026 11:00 AM CDT Hospital Encounter [address] [address] Jeffry Lara MD [address] [place] [address] [place] [address] 03/04/2026 11:00 AM CDT - 03/04/2026 11:30 AM CDT Surgery [address] [address] Jeffry Lara MD [address] [place] [address] [place] [address] COLONOSCOPY Scheduled Procedures Name Priority Associated Diagnoses Date/Ti me COLONOSCOPY Encounter for screening colonoscopy 03/04/2026 11:00 AM CDT Health Maintenance Due Date Last Done Comments Dilated Eye Exam 1972 Colon Cancer Screening-Colonoscopy 02/17/2025 02/17/2015, 02/17/2015 Lung Cancer Screening 04/25/2025 04/24/2024 , 01/12/2023, 10/12/2022 Breast Cancer Screening-Mammogram 10/13/2025 04/20/2022, 10/12/2020, 11/12/2018, Additional history exists Postponed from 04/20/2023 (Patient declined, but will receive in the future) Hemoglobin A1C 12/09/2025 06/11/2025, 01/06/2025 Albumin Creatinine Ratio, Urine 01/06/2026 01/06/2025 Foot Exam 01/06/2026 01/06/2025 Regular Well Visit/Exam 18-64 01/06/2026 01/06/2025, 09/15/2022, 03/26/2021, Additional history exists Zoster Vaccine (2 of 2) 01/06/2026 01/06/2025 Post poned from 03/03/2025 (Insurance / Financial) Lipid Panel 06/11/2026 06/11/2025, 04/0 04/2025, 09/15/2022, Additional history exists eGFR 06/11/2026 06/11/2025, 04/0 04/2025, 09/15/2022, Additional history exists Depression Screening 09/01/2026 09/01/2025, 07/23/2025, 01/06/2025, Additional history exists DTaP/Tdap/Td Vaccine (2 - Td or Tdap) 07/07/2030 07/07/2020 Cervical Cancer Screening Discontinued 01/01/2019 Covid-19 Vaccine Discontinued 01/05/2021, 12/08/2020 Hepatitis B Screening Completed 06/11/2025 Hepatitis C Screening Completed 06/11/2025, 04/07/2 025 Influenza Vaccine Completed 07/10/2025, , 09/15/2022, Additional history exists Pneumococcal vaccine <65 Completed 07/10/2025, 04/0 04/2025 Procedures Procedure Name Priority Date/Time Associated Diagnosis Comments US LIVER Schedule Routine, Read Routine (OP Routine) 06/20/2025 10:19 AM CDT Elevated LFTs HEPATITIS PANEL, ACUTE Routine 06/11/2025 4:57 PM CDT Elevated LFTs EGFR Routine 06/11/2025 9:10 AM CDT Mixed hyperlipidemia DIFFERENTIAL AUTO Routine 06/11/2025 9:1 0 AM CDT Mixed hyperlipidemia CBC WITH AUTO DIFFERENTIAL Routine 06/11/2025 9:10 AM CDT Mixed hyperlipidemia HEMOGLOBIN A1C Routine 06/11/2025 9:10 AM CDT Type 2 diabetes mellitus with hyperglycemia, without long-term current use of insulin (HCC) LIPID PANEL Routine 06/11/2025 9:10 AM CDT Mixed hyperlipidemia COMPREHENSIVE METABOLIC PANEL Routine 06/11/2025 9:10 AM CDT Mixed hyperlipidemia ALBUMIN CREATININE RATIO, URINE Routine 01/06/2025 11:49 AM CDT Type 2 diabetes mellitus with hyperglycemia, without long-term current use of insulin (HCC) CT LUNG CANCER SCREENING Schedule Routine, Read [...] Recently Relevant to Health Maintenance Results * US Liver (06/20/2025 10:19 AM CDT) Anatomical Region Laterality Modality Abdomen N/A Ultrasound 06/23/2025 1:20 AM CDT Narrative 06/23/2025 1:23 AM CDT EXAM DESCRIPTION: US LIVER REASON FOR STUDY: Abnormally elevated liver enzymes TECHNIQUE: Grayscale images acquired of the liver and recorded on PACS. Additional selected color Doppler and spectral images recorded. Selected velocities recorded. COMPARISON: None FINDINGS: LIVER: The liver demonstrates an increase in echotexture with attenuation of the ultrasound beam characteristic of fatty infiltration. No cystic or solid mass lesions were seen within the liver. The liver measures 17.5 cm in greatest diameter. LIVER VASCULATURE: The main portal vein is patent with antegrade flow. GALLBLADDER: The gallbladder appears unremarkable. No cholelithiasis. No gallbladder wall thickening or pericholecystic fluid. No positive sonographic [place] sign reported. BILIARY: No ductal dilatation. Common duct measures 5 mm . ASCITES: None. OTHER: The pancreas is normal in appearance. The right kidney measures 13.2 cm in greatest diameter. No evidence of hydronephrosis or nephrolithiasis. IMPRESSION: Fatty infiltration of the liver. THIS IS AN ELECTRONICALLY VERIFIED FINAL REPORT 06/23/2025 1:23 AM - Electronically signed by Bala Askew M.D. KT: RUY Report ID: [id number] Reading Location: [id number] Procedure Note Bala Askew MD - 06/23/2025 EXAM DESCRIPTION: US LIVER REASON FOR STUDY: Abnormally elevated liver enzymes TECHNIQUE: Grayscale images acquired of the liver and recorded on PACS. Additional selected color Doppler and spectral images recorded. Selected velocities recorded. COMPARISON: None FINDINGS: LIVER: The liver demonstrates an increase in echotexture withattenuation of the ultrasound beam characteristic of fatty infiltration. No cystic orsolid mass lesions were seen within the liver. The liver measures 17.5 cm in greatest diameter. LIVER VASCULATURE: The main portal vein is patent with antegrade flow. GALLBLADDER: The gallbladder appears unremarkable. No cholelithiasis.No gallbladder wall thickening or pericholecystic fluid. No positivesonographic [place] sign reported. BILIARY: No ductal dilatation. Common duct measures 5 mm . ASCITES: None. OTHER: The pancreas is normal in appearance. The right kidney .2 cm in greatest diameter. No evidence of hydronephrosis ornephrolithiasis. IMPRESSION: Fatty infiltration of the liver. THIS IS AN ELECTRONICALLY VERIFIED FINAL REPORT 06/23/2025 1:23 AM - Electronically signed by Bala Askew M.D. KT: KT Report ID: [id number] Reading Location: [place] [address] us Dale Lam MD IMG US PROCEDURES Final Res ult * Hepatitis panel, acute Blood (06/11/2025 4:57 PM CDT) Hep A IgM Nonreactive Nonreactive Comment: Interpretive Data: If Hep A IgM Ab is reported as Equivocal, a new sample should be drawn in two weeks for testing. Current interpretive data was last revised on 19. Hep B core IgM Nonreactive Nonreactive [facility] Comment: Interpretive Data If HepB Core IgM Ab is reported as Equivocal, a new sample should be drawn in two weeks for testing. Current interpretive data was last revised on 19. Hep C Ab Nonreactive Nonreactive [facility] Comment: Antibodies to HCV not detected. Does NOT exclude the possibility of recent exposure to HCV. Current interpretive data was last revised on 22 Interpretive Data Nonreactive: Antibodies to HCV not [...] Interpretive data was last revised on 2019. HepBsAg Nonreactive Nonreactive [facility] Blood 06/11/2025 4:57 PM CDT 06/11/2025 6:35 PM CDT Dale Lam MD LAB MICROBIOLOGY - GENERAL ORDERABLES Final Result Performing Organization Address [facility] Co de Phone Number MICHEAL [address] [address] * eGFR (06/11/2025 9:10 AM CDT) Pathologist [facility] eGFR >90 >=60 mL/min/1. 73 m2 Comment: [...] interpretive data was last reviewed 2021. Blood 06/11/2025 9:10 AM CDT 06/11/2025 11:41 AM CDT Dale Lam MD LAB BLOOD ORDERABLES Final Result Performing Organization Address City/[facility]/ZIP Co de Phone Number MICHEAL [address] [place] [address] * Differential, auto (06/11/2025 9:10 AM CDT) Pathologist [facility] Neutrophil abs 2.05 1.50 - 6.50 K/cumm Imm gran abs 0.01 0.00 - 0.10 K/cumm [facility] Lymphocyte abs 1.66 0.80 - 3.30 K/cumm [facility] Monocyte abs 0.33 0.20 - 0.80 K/cumm [facility] Eosinophil abs 0.05 0.00 - 0.50 K/cumm [facility] Basophil abs 0.04 0.00 - 0.10 K/cumm [facility] Neutrophil pct 49.5 % [facility] Comment: Interpretive Data Percent cell count reference ranges are not reported, since discordance with absolute values may lead to misinterpretation of CBC data. Current Interpretive Data was last revised on 2018. Imm gran pct 0.2 % [facility] Comment: Interpretive Data Percent cell count reference ranges are not reported, since discordance with absolute values may lead to misinterpretation of CBC data. Current Interpretive Data was last revised on 2018. Lymphocyte pct 40.1 % [facility] Comment: Interpretive Data Percent cell count reference ranges are not reported, since discordance with absolute values may lead to misinterpretation of CBC data. Current Interpretive Data was last revised on 2018. Monocyte pct 8.0 % [facility] Comment: Interpretive Data Percent cell count reference ranges are not reported, since discordance with absolute values may lead to misinterpretation of CBC data. Current Interpretive Data was last revised on 2018. Eosinophil pct 1.2 % [facility] Comment: Interpretive Data Percent cell count reference ranges are not reported, since discordance with absolute values may lead to misinterpretation of CBC data. Current Interpretive Data was last revised on 2018. Basophil pct 1.0 % [facility] Comment: Interpretive Data Percent cell count reference ranges are not reported, since discordance with absolute values may lead to misinterpretation of CBC data. Current Interpretive Data was last revised on 2018. Blood 06/11/2025 9:10 AM CDT 06/11/2025 11:41 AM CDT us Dale Lam MD LAB BLOOD ORDERABLES Final Result [facility] [address] [facility] [place] [address] * CBC with auto differential (06/11/2025 9:10 AM CDT) WBC 4.14 3.80 - 9.90 K/cumm Hgb 13.4 11.9 - 15.5 g/dL [facility] Hct 39.9 35.6 - 45.5 % [facility] Plt 237 150 - 400 K/cumm [facility] MPV 10.8 9.1 - 12.3 fL [facility] RBC 4.49 3.90 - 5.20 M/cumm [facility] MCV 88.9 81.3 - 96.4 fL [facility] MCH 29.8 27.1 - 33.3 pg [facility] MCHC 33.6 32.3 - 35.7 g/dL [facility] RDW CV 11.9 11.1 - 14.9 % [facility] RDW SD 38.2 35.7 - 48.1 fL [facility] NRBC abs 0.00 0.00 - 0.01 K/cumm [facility] Blood 06/11/2025 9:10 AM CDT 06/11/2025 11:41 AM CDT Dale Lam MD LAB BLOOD ORDERABLES Final Result Performing Organization Address City/State/[facility] Phone Number [facility] [address] [facility] Department of [facility] [place], [place] [id number] * (ABNORMAL) Hemoglobin A1c (06/11/2025 9:10 AM CDT) Pathologist [facility] Hgb A1C 5.8(H) 4.0 - 5.6 % Estimated Average Glucose 120 mg/dL [facility] Comment: The ADA recommends reporting an estimated Average Glucose (eAG) with all Hemoglobin A1c results using the equation derived from a study of 507 normal and diabetic adults. Minority populations were underrepresented and children were not included. (Diabetes Care 31:9928-0308, 2008). The eAG is not equivalent to a fasting glucose. Blood 06/11/2025 9:10 AM CDT 06/11/2025 11:41 AM CDT Dale Lam MD LAB BLOOD ORDERABLES Final Result [facility] [address] [facility] [place] [address] * (ABNORMAL) Lipid panel (06/11/2025 9:10 AM CDT) Cholesterol 242(H) 30 - 199 mg/dL Comment: Interpretive Data [...] Data was last revised on 2018. Triglycerides 188(H) <=149 mg/dL [facility] Comment: Interpretive Data Ages < [...] Data was last revised on 2018. HDL 48 >=40 mg/dL [facility] Comment: Interpretive Data Ages [...] was last revised on 2018. LDL, calculated 160(H) <=129 mg/dL [facility] Comment: Interpretive Data Ages < or = [...] 3. Rosas Swann et al. TOR Cardiol. 2019January 30;5(5):540-548. doi: 10.1001/jamacardio.2020.0013 Current Interpretive Data was last revised on 2024. Non-HDL Cholesterol 194 mg/dL [facility] Comment: Interpretive Data Ages < [...] was last revised on 2018. Chol/HDL ratio 5 [facility] Blood 06/11/2025 9:10 AM CDT 06/11/2025 11:41 AM CDT us Dale Lam MD LAB BLOOD ORDERABLES Final Result [facility] [address] [facility] [place] [address] * (ABNORMAL) Comprehensive metabolic panel (06/11/2025 9:10 AM CDT) Pathologist [facility] Sodium 140 135 - 145 mmol/L Potassium, pl 4.7 3.3 - 4.9 mmol/L [facility] Chloride 102 97 - 110 mmol/L [facility] CO2 27 22 - 32 mmol/L [facility] Anion gap 11 2 - 15 mmol/L [facility] BUN 13 6 - 25 mg/dL [facility] Creatinine 0.67 0.60 - 1.10 mg/dL [facility] Glucose 119 70 - 199 mg/dL [facility] Comment: Interpretive Data Fasting glucose >/= 126 [...] interpretive data was last revised 2022. Calcium 9.9 8.5 - 10.3 mg/dL [facility] Bilirubin, total 0.4 0.1 - 1.2 mg/dL [facility] Protein, pl 7.4 6.5 - 8.5 g/dL [facility] Albumin 4.7 3.5 - 5.0 g/dL [facility] Alk phos 85 40 - 130 Units/L [facility] ALT 84(H) 7 - 45 Units/L [facility] AST 68(H) 10 - 45 Units/L [facility] Blood 06/11/2025 9:10 AM CDT 06/11/2025 11:41 AM CDT us Dale Lam MD LAB BLOOD ORDERABLES Final Result [facility] [address] [facility] [place] [address] * Albumin Creatinine Ratio, Urine (01/06/2025 11:49 AM CDT) [facility] Albumin Ur <12.0 mg/L Comment: Interpretive Data No reference range established. Current interpretive data was last revised 2019. Creatinine Ur 139.8 mg/dL [facility] Comment: Interpretive Data No reference range established. Current interpretive data was last revised 2019. Albumin Creatinine Ratio, Ur <9 1 - 29 mg/g [facility] Urine 01/06/2025 11:4 9 AM CDT 01/06/2025 11:12 PM CDT Dale Lam MD LAB URINE ORDERABLES Final Result [facility] [address] [address] [place] [address] * CT Lung Cancer Screening (04/24/2024 4:45 [...] Electronically signed by Sherry Christiansen M.D. TW: TW Report ID: [id number] Reading Location: [place] [address] Procedure Note Sherry Christiansen MD - 04/25/2024 [...] Sherry Christiansen M.D. TW: MONIQUE Report ID: [id number] Reading Location: [place] [address] Kim Cotter NP IM CT PROCEDURES Final Result * Screening Mammogram [...] next mammogram. Electronically signed by: ERIK ALFORD Narrative 04/20/2022 8:42 AM CDT EXAMINATION: SCREENING MAMMOGRAM [...] either breast on mammogram. Dale Lam MD IMG MAMMO PROCEDURES Final [...] 01/03/2019 3:11 PM CDT Performed at: - [facility] [id number] Fire Systems Inspector: Yi Johnson MD, Phone: [phone] Performed at: - [facility] [id number] Fire Systems Inspector: Yi Johnson MD, Phone: [phone] Specimen Comment: No. of containers..01 ThinPrep Vial Jordan Merritt MD LAB PATHOLOGY ORDERABLES F inal Result [facility] - 01 LAB [place] 02 * COLONOSCOPY IMAGES (02/17/2015) Anatomical Region Laterality Modality Other Narrative 02/17/2015 Ordered by an unspecified provider. us Historical Provider GI PROCEDURE ORDERABLES F inal Result from Last 3 Months or Most Recently Relevant to Health Maintenance Insurance [facility] Advance Directives For more information, please contact: [phone] * Full Code (Latest Code Status on File) Date Activated Date Inactivated Comments 03/13/2019 2:07 PM 03/14/2019 3:50 PM Care Teams Clinical Therapist Relationship Specialty Start Date End Date Dale Lam MD [address] [place] [address] PCP - General Family Medicine 10/14/24 Jordan Merritt MD [address] [place] [address] [address] [place] [address] Investor Relations Manager Obstetrics and Gynecology 07/07/20
--- OUTSIDE RECORDS SUMMARY | 2025-09-03 17:15 | XMS_ITS | Encounter Summary ---
Author Organization [facility] Healthcare Address [address] [place] [address] Care Team Providers Care Licensed Weigher Name Role Phone Dale Lam MD Primary Care Provider [phone] Jordan Merritt MD Unavailable [phone] Po Vidal MD Primary Care Provider [phone] Dale Lam MD Primary Care Provider [phone] Encounter Details Date Type Department Care Team (Late st Contact Info) Description 01/11/2023 Telephone [facility] [address] [place] [address] Annette Rowan, RT Social History Tobacco Use Types Packs/Day Years Used Date Smoking Tobacco: Former Cigarettes 989 - 2016 Smokeless Tobacco: Never Comments:Smoking History [...] How often do you attend chur or zoroastrianism services? More than 4 times per year 07/07/2020 Do you belong to any clubs o r organizations such as mormonism groups, unions, fraternal or athletic groups, or [...] staff should administer the PHQ-9) 0 12/14/2022 [facility] - Occupational [...] on file Legal Sex Female 11:04 AM SOLDERER BARREL RIBS Gender Identity Not on file Sexual Orientation Not on file Occupation Industry Job Start Date Job End Date Not on file Not on file Not on file Not on file documented as of this encounter Plan of Treatment Upcoming Encounters Date Type Department Care Team (Late st Contact Info) Description 03/04/2026 11:00 AM CDT Hospital Encounter [address] [address] Jeffry Lara MD [address] [place] [address] [address] [place] [address] 03/04/2026 11:00 AM CDT - 03/04/2026 11:30 AM CDT Surgery [address] [address] Jeffry Lara MD [address] [place] [address] [address] [place] [address] COLONOSCOPY Scheduled Procedures Name Priority Associated Diagnoses Date/Ti me COLONOSCOPY Encounter for screening colonoscopy 03/04/2026 11:00 AM CDT documented as of this encounter Visit Diagnoses Not on filedocumented in this encounter Additional Health Concerns Infection Onset Date Last Indicated Resolved Time COVID: Suspected 10/14/2024 10/14/2024 10/14/2024 11:21 AM SOLDERER BARREL RIBS documented as of this encounter Care Teams Licensed Weigher Relationship Specialty Start Date End Date Dale Lam MD PCP - General 12/30/16 04/02/24 Po Vidal MD [address] [place] [address] [address] [place] [address] PCP - General Family Practice 04/03/24 10/13/24 Dale Lam MD [address] [place] [address] PCP - General Family Medicine 10/14/24 Jordan Merritt MD [address] [place] [address] [address], [place] [address] Aerial Advertiser Obstetrics and Gynecology 07/07/20 documented as of this encounter
--- OUTSIDE RECORDS SUMMARY | 2025-09-03 17:15 | XMS_ITS | Encounter Summary ---
Author Organization [facility] Address [address] [place] [address] Phone Care Team Providers Care Splunk Consultant Name Role Phone Dale Lam MD Primary Care Provider [phone] Jordan Merritt MD Unavailable [phone] Po Vidal MD Primary Care Provider [phone] Dale Lam MD Primary Care Provider [phone] Encounter Details Date Type Department Care Team (Late st Contact Info) Description 10/06/2017 Orders Only [facility] ProviderBrooklyn MD [address] [place] [address] Social History Tobacco Use Types Packs/Day Years Used Date Smoking Tobacco: Former Smokeless Tobacco: Never Comments:Smoking History Pac ks/day: 1 Packs Alcohol Use Standard Drinks/Week Comments No 0 (1 standard drink = 0.6 oz pur e alcohol) Comments No Sex and Gender Information Value Date Recorded Sex Assigned at Not on file Legal Sex Female 11:04 AM CRANE FOLLOWER Gender Identity Not on file Sexual Orientation Not on file documented as of this encounter Plan of Treatment Upcoming Encounters Date Type Department Care Team (Late st Contact Info) Description 03/04/2026 11:00 AM CDT Hospital Encounter [facility] [address] [place] [address] Jeffry Lara MD [address] [place] [address] [address] [place] [address] 03/04/2026 11:00 AM CDT - 03/04/2026 11:[address] [facility] [address] [place] [address] Jeffry Lara MD [address] [facility] [address] [place] [address] COLONOSCOPY Scheduled Procedures Name Priority Associated Diagnoses Date/Ti me COLONOSCOPY Encounter for screening colonoscopy 03/04/2026 11:00 AM CDT documented as of this encounter Procedures Procedure Name Priority Date/Time Associated Diagnosis Comments DISCHARGE LABORATORY CUMULATIVE REPORT 10/06/2017 12:00 AM CRANE FOLLOWER documented in this encounter Results * DISCHARGE LABORATORY CUMULATIVE REPORT (10/06/2017 12:00 AM CRANE FOLLOWER) Narrative 10/06/2017 12:00 AM CRANE FOLLOWER Ordered by an unspecified provider. us Historical Provider LAB BLOOD ORDERABLES Gabby l Result documented in this encounter Visit Diagnoses Not on filedocumented in this encounter Additional Health Concerns Infection Onset Date Last Indicated Resolved Time COVID: Suspected 09/04/2020 09/04/2020 09/06/2020 3:55 AM CRANE FOLLOWER COVID19 09/04/2020 09/04/2020 09/18/2020 3:07 AM CRANE FOLLOWER COVID: Recovered Comment:Added based on recent COVID infection. 09/18/2020 10/12/2020 01/16/2021 3:07 AM C DT COVID: Suspected 01/28/2022 01/28/2022 01/28/2022 1:38 PM CDT COVID: Suspected 03/02/2022 03/02/2022 03/02/2022 10:11 AM CDT COVID19 03/02/2022 03/02/2022 03/12/2022 3:05 AM CDT COVID: Recovered Comment:Added based on recent COVID infection. 03/12/2022 03/21/2022 07/10/2022 3:05 AM C DT COVID: Suspected 10/28/2022 10/28/2022 10/28/2022 11:52 AM CRANE FOLLOWER COVID: Suspected 10/14/2024 10/14/2024 10/14/2024 11:21 AM CRANE FOLLOWER documented as of this encounter Care Teams Splunk Consultant Relationship Specialty Start Date End Date Dale Lam MD PCP - General 12/30/16 04/02/24 Po Vidal MD [address] [facility] [address], [place] [address] PCP - General Family Practice 04/03/24 10/13/24 Dale Lam MD [address] [address] PCP - General Family Medicine 10/14/24 Jordan Merritt MD [address] [facility] [address] [place] [address] Heating Systems Installer Obstetrics and Gynecology 07/07/20 documented as of this encounter
--- OUTSIDE RECORDS SUMMARY | 2025-09-03 17:15 | XMS_ITS | Encounter Summary ---
Author Organization [facility] Address [address] [place] [address] Care Team Providers Care Machine Veneer Repairer Name Role Phone Unavailable Primary Care Provider Unavailabl e Encounter Details Date Type Department Care Team (Late st Contact Info) Description 10/22/[address] [facility] DermPath Lab [address] [facility] [place] [id number] Sanford Granados MD [address] [place] [address] Social History Tobacco Use Types Packs/Day Years Used Date Smoking Tobacco: Never Assessed Comments No Sex and Gender Information Value Date Recorded Sex Assigned at Not on file Legal Sex Female 7:11 PM MANUSCRIPTS CURATOR Gender Identity Not on file Sexual Orientation Not on file documented as of this encounter Plan of Treatment Not on file documented as of this encounter Procedures Procedure Name Priority Date/Time Associated Diagnosis Comments DERMATOPATHOLOGY Routine 10/20/2020 3:27 AM MANUSCRIPTS CURATOR documented in this encounter Results * DERMATOPATHOLOGY (10/20/2020 3:27 AM MANUSCRIPTS CURATOR) Case Report Dermatopathology Report Case: [id number] Authorizing Provider: Sanford Granados MD Collected: 10/20/2020 03:27 AM Ordering Location: [facility] DermPath Lab Received: 10/22/2020 10:29 AM Pathologist: Sandra Daniel MD Specimens: A) - Skin, left upper arm superior B) - Skin, left uper arm inferior C) - Skin, mid upper back 12:51 PM [facility] DERMATOPATHOLOGY [facility]ORAT[facility] Final Diagnosis Specimen A. SKIN, left upper arm superior: LENTIGINOUS MELANOCYTIC NEVUS, COMPOUND TYPE, IRRITATED (COMPOUND MELANOCYTIC NEVUS WITH ARCHITECTURAL DISORDER) (D22.62) Specimen B. SKIN, left uper arm inferior: COMPOUND MELANOCYTIC NEVUS, IRRITATED (D22.62) Specimen C. SKIN, mid upper back: COMPOUND MELANOCYTIC NEVUS (D22.5) 12:51 PM [facility] DERMATOPATHOLOGY [facility]ORAT[facility] at [address] MANUSCRIPTS CURATOR Clinical History A-C: Nevus vs MM. 12:51 PM [facility] Gross Description Specimen A: Received is one formalin filled container labeled with the patient's name and designated left upper arm superior. The specimen consists of a shave biopsy measuring [id number]. Jar 0. Specimen B: Received is one formalin filled container labeled with the patient's name and designated left uper arm inferior. The specimen consists of a shave biopsy measuring [id number]. Jar 0. Specimen C: Received is one formalin filled container labeled with the patient's name and designated mid upper back. The specimen consists of a shave biopsy measuring [id number]. Jar 0. 12:51 PM [facility]ERMAT[facility] Microscopic Description Specimen A. SKIN, [...] junction and within the dermis. 12:51 PM [facility] Disclaimer An external and internal positive and negative controls are appropriate for the histochemical, immunohistochemical and immunofluorescence stain(s) in this case (if any), except where stated explicitly. The performance characteristics of the stain(s) cited in this report were developed and its performance characteristic determined by the Dermatopathology Laboratory at [facility], directed by Dr. Kapil Long. These tests need not be, and therefore are not, approved by the [place] Food and Drug Administration. The tests are used for clinical purposes. Billing Codes Specimen Charges Stain Charges 29522 [id number] 1 1 1 1 12:51 PM MANUSCRIPTS CURATOR DERMATOPATHOLOGY LABORATORY Embedded Images 1 12:51 PM MANUSCRIPTS CURATOR DERMATOPATHOLOGY LABORATORY Pathology/Cytology TISSUE SPECIMEN FROM SKIN / Unknown 10/20/2020 3:27 AM MANUSCRIPTS CURATOR 10/22/2020 10:29 AM MANUSCRIPTS CURATOR Miscellaneous samples (specimen) TISSUE SPECIMEN FROM SKIN / Unknown 10/20/2020 3:27 AM MANUSCRIPTS CURATOR 10/22/2020 10:29 AM MANUSCRIPTS CURATOR Miscellaneous samples (specimen) TISSUE SPECIMEN FROM SKIN / Unknown 10/20/2020 3:27 AM MANUSCRIPTS CURATOR 10/22/2020 10:29 AM MANUSCRIPTS CURATOR us Sanford Granados MD LAB - PATHOLOGY/CYTOLOGY ORDER TEMO Final Result DERMATOPATHOLOGY LABORATORY [facility] - Department of Dermatology [address] [place] [address], [facility] [phone] documented in this encounter Visit Diagnoses Not on filedocumented in this encounter
--- OUTSIDE RECORDS SUMMARY | 2025-09-03 17:15 | XMS_ITS | Clinical Summary ---
Author Organization [facility] [employer] Address [address] [place] [address] Care Team Providers Care Banquet Pilot Name Role Phone Unavailable Primary Care Provider Unavailabl e Source Comments [facility],non-owned Affiliates and Associated Physician Practices is amultiple site organization consisting of ambulatory clinics and hospital sitesin [place], [place], [place] and [place]. This disclosure is being madepursuant to the Care Everywhere program and may not contain all information available regarding this patient. Last updated 18.[facility] [employer] Allergies Active Allergy Reactions Criticality Noted Date [...] on file Legal Sex Female 7:11 PM CO FOUNDER AND CTO Gender Identity Not on file Sexual Orientation [...] 11:46 AM CDT Height 175.3 cm (5' 9) 04/01/2018 11:46 AM CDT Body Mass Index [...] 2022 ZOSTER VACCINE (1 of 2) 2022 DEPRESSION SCREENING 10/02/2024 COVID-19 VACCINE (1 - 2024-2 6 season) 2025 INFLUENZA VACCINE (#1) 2025 7, 09/15/2016 HIB VACCINE Aged Out No longer [...] patient's age to complete this topic [place] [address] [place] [address]
--- OUTSIDE RECORDS SUMMARY | 2025-09-03 17:15 | XMS_ITS | Clinical Summary ---
Author Organization [facility] Address [address] [place] [address] Phone Care Team Providers Care Supervisor Heavy Equipment Name Role Phone Mita Post DO Primary Care Provider [phone] Allergies Active Allergy Reactions Criticality Noted Date [...] on file Legal Sex Female 2:42 PM MANUFACTURING STOREPERSON Gender Identity Not on file Sexual Orientation [...] years) (1 of 2 - PCV) 1991 Cologuard 2017 Colonoscopy 2017 Colorectal Cancer Screening 2017 Immunochemical Fecal Occult Blood 2017 Respiratory Syncytial Virus (RSV) Immunization (Adult) (1 - Risk 50-74 years 1-dose series) 2022 Zoster Immunization (1 of 2) 2022 Influenza Immunization (#1) 06/02/202503/2020, 08/21/2018, 08/18/2017, Additional history exists SARS-COV-2 Immunization ( season) 2025 01/05/2021, 12/08/2020 DTaP/Tdap/Td Immunization Discontinued 07/07/2020 TdaP Immunization Completed 07/07/2020 Human Papillomavirus (HPV) Immunization Aged Out No longer eligible based on patient's age to complete this topic Meningococcal Immunization (ACWY) Aged Out No longer eligible based on patient's age to complete this topic Rotavirus Immunization Aged Out No lo nger eligible based on patient's age to complete this topic Insurance [facility] Care Teams Supervisor Heavy Equipment Relationship Specialty Start Date End Date Mita Post DO [address] [address] PCP - General Family Medicine 09/18/15
--- NOTE | 2025-09-03 17:27 | ECG_ITS ---
Test Date: 2025-09-03 18:48:38 Measurements Intervals [place] Rate: 86 P: 41 WV: 198 QRS: 16 QRSD: 105 T: 7 QT: 362 QTc: 435 Interpretive Statements SINUS RHYTHM INCOMPLETE RIGHT BUNDLE BRANCH BLOCK BORDERLINE ST-T WAVE ABNORMALITY- INFERIOR LEADS BASELINE ARTIFACT- I, III, AVR, AVL BORDERLINE ECG No previous ECG available for comparison Electronically Signed On 09-03-2025 19:27:11 AERIAL PLANTING AND CULTIVATION MANAGER by Guy Levin D.O.
--- NOTE | 2025-09-03 17:29 | ED_ITS ---
HPI - Abdominal Pain General Chief Complaint: Abdominal Pain Stated Complaint: upper abd pain Time Seen by Provider: 09/03/25 17:16 History of Present Illness HPI narrative: Patient is a 55-year-old female who presents to the ER with right upper quadrant abdominal pain. She reports her pain started approximately 2 days ago. Patient reports yesterday she had diarrhea, nausea and vomiting associated with the right upper quadrant pain and heartburn. She reports she still has her gallbladder and appendix. Patient reports she is on Ozempic and has been for about 6 months. She endorses a history of borderline diabetes, hyperlipidemia, and hysterectomy. Patient denies any chest pain, recent fevers, or urinary symptoms. Related Data Home Medications ?Medication ?Instructions ?Recorded ?Confirmed ?Last Taken ?Type dextroamphetamine-amphetamine ER 20 mg PO BID 05/16/23 05/16/23 Unknown History 20 mg 24hr capsule,extend release (Adderall XR) montelukast 10 mg tablet 10 mg PO DAILY 05/16/2305/02 Unknown History Allergies Allergy/AdvReac Type Severity Reaction Status Date / Time Penicillins Allergy Unknown Hives / Verified 09/03/25 17:15 Red Face Review of Systems 2 Review of Systems: All systems reviewed & are unremarkable except as noted in HPI and below PMFSH Past Medical History Medical History Ectopic Surgical History Surgical History History of hysterectomy History of tonsillectomy and adenoidectomy History of tonsillectomy Family History Family History Father Cancer Hypertension Heart disease Mother Heart disease Grandparent Heart disease Hypertension Grandparent Cancer Hypertension Social History Social History Smoking status: Never smoker Tobacco type: e-cigarettes/vaping Alcohol intake: former Lack of Transportation: No Lack of Food: Never True Current Housing: I Have Housing Concerned About Future Housing: No Difficulty Paying Gas/Electric Bills: No Difficulty Paying for Meds: No Currently Unemployed: No Education: High School Diploma/GED Difficulty w/ Childcare or Family Care: No Living arrangements: with family Gender identity (if verbalized by the patient): Female Agree to blood products: Yes Exam 2 Narrative: GENERAL: Well appearing, well-nourished, non-toxic, in no acute distress. HEAD: Normocephalic, atraumatic. NECK: Supple. No adenopathy, no masses. RESPIRATORY: Airway patent, respirations nonlabored. Clear to auscultation bilaterally, no rales, rhonchi, wheezing. CARDIOVASCULAR: Regular rate and rhythm without murmurs, rubs, or gallops. Peripheral pulses 2+ and equal bilaterally. ABDOMINAL: Soft, + tender RUQ and RLQ with palpation, nondistended, no hepatosplenomegaly. Normoactive BS. + Mason sign. MUSCULOSKELETAL: Moves all extremities. Strength/ROM intact without gross deformities. SKIN: Warm, dry, normal color. No rashes. NEURO: A&O X3. Speech clear. Cranial nerves II-XII intact. No ataxic movements. PSYCHIATRIC: Appropriate mood and affect. Normal interaction. Course Vital Signs Vital signs: Vital Signs Temperature 36.5 C 09/03/25 16:52 Pulse Rate 102 H 09/03/25 16:52 Respiratory Rate 20 09/03/25 16:52 Blood Pressure 136/90 09/03/25 16:52 Pulse Oximetry 98 09/03/25 16:52 Oxygen Delivery Room Air 09/03/25 16:52 Temperature 36.5 C 09/03/25 16:52 Pulse Rate 98 09/03/25 17:15 Respiratory Rate 16 09/03/25 17:15 Blood Pressure 124/85 09/03/25 17:15 Pulse Oximetry 97 09/03/25 17:15 Oxygen Delivery Room Air 09/03/25 17:15 [facility] MDM Narrative Medical decision making narrative: Patient is a 55-year-old female who presents to the ER with right upper quadrant abdominal pain. She reports her pain started approximately 2 days ago. Patient reports yesterday she had diarrhea, nausea and vomiting associated with the right upper quadrant pain and heartburn. She reports she still has her gallbladder and appendix. Patient reports she is on Ozempic and has been for about 6 months. She endorses a history of borderline diabetes, hyperlipidemia, and hysterectomy. Patient denies any chest pain, recent fevers, or urinary symptoms. Labs Ordered: CBC, CMP, UA, lipase, UDS, lactic acid, COVID/flu/RSV Imaging Ordered: CT abdomen pelvis, right upper quadrant ultrasound Medications Ordered: 1 L normal saline IV bolus, of Benadryl 25 mg IV, Reglan 10 mg IV, morphine 4 mg IV, Pepcid 20 mg IV Results: PT's CT scan indicates Lung bases unremarkable. Heart size normal. The spleen, pancreas, adrenal glands and kidneys are unremarkable. There is fatty infiltration of the liver. Gallbladder is present. Colonic diverticulosis without evidence for diverticulitis. Normal appendix. No significant vascular abnormality. No lymphadenopathy. No free air or free fluid. Moderate lower thoracic and lumbar spondylosis. Diagnosis: Biliary colic, urinary tract infection, gastroenteritis, mild dehydration Patient Education/Shared MDM: Results of lab work and imaging shared with patient. She endorses improvement of symptoms following medication administration. Patient strongly advised to maintain hydration status upon discharge and follow-up with her PCP as needed. She will be discharged home with a prescription for Bactrim and Reglan. Strict return precautions provided. Patient verbalized understanding and is in agreement with plan. Vital signs stable at time of discharge. All questions answered. Differential Diagnosis Differential Diagnosis: Cholelithiasis, small bowel obstruction, gastroenteritis, constipation Lab Data MDM Lab Attestation statement: I personally reviewed the patient's lab results. 09/03/25 17:33 09/03/25 17:33 Labs: Lab Results 09/03/25 09/03/25 Range/Units 17:33 17:36 WBC 6.6 (4.5-10.0) K/mm3 RBC 4.63 (4.2-5.4) M/mm3 Hgb 13.9 (12.0-15.0) g/dL Hct 39.0 (37.0-47.0) % MCV 84.2 (80-100) fl MCH 30.0 (26-34) pg MCHC 35.6 (32-36) g/dl RDW 11.8 (11.5-14.5) % Plt Count 254 (150-375) k/mm3 MPV 10.5 H (7.4-10.4) fl Immature Gran % (Auto) 0.2 (0-0.5) % Neut % (Auto) 57.8 (45.5-73.1) % Lymph % (Auto) 33.9 (18.3-44.2) % [place] % (Auto) 7.3 (2.6-8.5) % Eos % (Auto) 0.5 (0-4.4) % Baso % (Auto) 0.3 (0.2-1.2) % Lymph # (Auto) 2.24 (0.9-3.2) K/mm3 [place] # (Auto) 0.5 (0.1-0.6) K/mm3 Eos # (Auto) 0.0 (0-0.3) K/mm3 Baso # (Auto) 0.0 (0.0-0.1) K/mm3 Abs Immat Gran (auto) 0.01 (0.00-0.031) K/mm3 Absolute Neuts (auto) 3.8 (1.3-6.7) K/mm3 Absolute Nucleated RBC 0.000 (0.0-0.012) K/mm3 Nucleated RBC % 0.0 (0.0-0.2) % Sodium 137 (137-145) mmol/L Potassium 3.9 (3.4-5.0) mmol/L Chloride 105 (98-107) mmol/L Carbon Dioxide 22 (22-30) mmol/L Anion Gap 10 (4-12) mmol/L BUN 19 H (7-17) mg/dL Creatinine 1.15 H (0.7-1.0) mg/dL Estim Creat Clear Calc 53 ml/min Estimated GFR 49 L (59 - ) Glucose 90 (65-110) mg/dL Lactic Acid 0.9 (0.7-2.0) mmol/L Calcium 10.4 H (8.4-10.2) mg/dL Total Bilirubin 0.9 (0.2-1.3) mg/dL AST 32 (14-36) U/L ALT 27 (6-35) U/L Alkaline Phosphatase 71 (38-126) U/L Total Protein 8.0 (6.3-8.2) g/dL Albumin 4.9 (3.5-5.1) g/dL Lipase 91 (23-300) U/L Urine Color Dark yellow (Yellow) Urine Appearance Cloudy H (Clear) Urine pH 5.0 (5.0-9.0) Ur Specific Marshall 1.025 (1.001-1.035) Urine Protein Trace (Negative) mg/dL Urine Glucose (UA) Negative (Negative) mg/dL Urine Ketones 1+ H (Negative) mg/dL Ur Blood (Man) Negative (Negative) Urine Nitrate Negative (Negative) Urine Bilirubin Negative (Negative) Urine Urobilinogen 0.2 (<2.0) mg/dL Add Ur Microanalysis Reviewed Leukocyte Esterase Rfl 1+ H (Negative) PURA/UL Urine RBC 0-2 (0-2) /hpf Urine WBC 11-20 H (0-3) /hpf Ur Squamous Epith Cells Moderate (Few) /hpf Urine Bacteria Trace /hpf Urine Casts >20 Urine Opiates Screen Negative (Negative) Urine Methadone Screen Negative (Negative) Ur Barbiturates Screen Negative (Negative) Ur Phencyclidine Scrn Negative (Negative) Ur Amphetamine Screen Positive A (Negative) U Benzodiazepines Scrn Negative (Negative) Urine Cocaine Screen Negative (Negative) U Cannabinoids Screen Negative (Negative) Influenza A (RT-PCR) Negative (Negative) Influenza B (RT-PCR) Negative (Negative) RSV (RT-PCR) Negative (Negative) SARS-CoV-2 RNA (RT-PCR) Negative (Negative) Imaging Data Attestation: I personally reviewed and interpreted this imaging study as follows: Radiologist's impression: ITS Impressions Abdomen Ultrasound 09/03/25 18:10 IMPRESSION: 1: Fatty infiltration of the liver. Abdomen/Pelvis CT 09/03/25 18:56 IMPRESSION: 1. No acute abdominal abnormality. 2: Fatty infiltration of the liver. Discharge Plan Discharge Clinical Impression: Urinary tract infection, Gastroenteritis, Biliary colic, Dehydration, mild Patient Disposition: Home Condition: Stable Instructions: Antibiotic Form, Urinary Tract Infection in Women (ED), Gastroenteritis (ED) Additional Instructions: Please return to the ER with any worsening symptoms. Follow-up with primary care provider as needed. Take all medications as prescribed, including regularly scheduled medications. Please complete your full dose of antibiotics. Remember to drink lots of water. Patient Language: Malay Prescriptions: New sulfamethoxazole-trimethoprim [Bactrim DS] 800-160 mg tablet 1 tablet PO Q12H 5 Days Qty: 10 0RF metoclopramide HCl [Reglan] 10 mg tablet 10 mg PO Q6H PRN (Reason: nausea and vomiting) Qty: 30 0RF No Action prednisone 20 mg tablet 40 mg PO DAILY 5 Days Qty: 10 0RF baclofen 10 mg tablet 10 mg PO TID 5 Days Qty: 15 0RF montelukast 10 mg tablet 10 mg PO DAILY dextroamphetamine-amphetamine [Adderall XR] 20 mg capsule,extended release 24hr 20 mg PO BID methylprednisolone [Medrol (Parish)] 4 mg tablets,dose pack See Rx Instructions PO PER PKG DIR Qty: 21 0RF Rx Instructions: PO PER PKG DIR azithromycin 250 mg tablet See Rx Instructions PO .COMPLEX Qty: 6 0RF Rx Instructions: For 250 mg dose pack: take 500 mg today (day 1), then 250 mg for 4 days (days 2-5) PO hydrocodone-acetaminophen 5-325 mg tablet 1 tablet PO Q6H PRN (Reason: pain) Qty: 20 0RF azithromycin 250 mg tablet See Rx Instructions PO .COMPLEX Qty: 6 0RF Rx Instructions: For 250 mg dose pack: take 500 mg today (day 1), then 250 mg for 4 days (days 2-5) PO methylprednisolone [Medrol (Parish)] 4 mg tablets,dose pack See Rx Instructions PO PER PKG DIR Qty: 21 0RF Rx Instructions: PO PER PKG DIR sumatriptan succinate [Imitrex] 50 mg tablet 50 mg PO ONCE PRN (Reason: migraine headache) Qty: 14 1RF Follow-up/Referrals: Carole,Dale Purdy MD [Primary Care Provider, Unknown] Time of Disposition: 19:22
[2025-09-03] MEDS: MORPHINE SULFATE (*CRX) 4 MG/ML INJ IV PUSH (17:43)
[2025-09-03] MEDS: FAMOTIDINE 20 MG/2 ML VIAL IV PUSH (17:43)
[2025-09-03] MEDS: SODIUM CHLORIDE 0.9% IV 1,000 ML 999 ML IV CONT (17:43)
[2025-09-03] MEDS: METOCLOPRAMIDE HCL INJ 10 MG/2 ML VIAL IV PUSH (17:43)
--- OUTSIDE RECORDS SUMMARY | 2025-09-03 17:46 | XMS_ITS | Encounter Summary ---
Author Organization [facility] Address [address] [place] [address] Care Team Providers Care Sanitary Engineer Name Role Phone Dale Lam MD Primary Care Provider [phone] Jordan Merritt MD Unavailable [phone] Po Vidal MD Primary Care Provider [phone] Dale Lam MD Primary Care Provider [phone] Encounter Details Date Type Department Care Team (Late st Contact Info) Description 01/11/2023 Telephone [facility] [address] [place] [address] Annette Rowan, RT Social History Tobacco Use [...] How often do you attend chur or cheondoism services? More than 4 times per year 07/07/2020 Do you belong to any clubs o r organizations such as spiritism groups, unions, fraternal or athletic groups, or [...] staff should administer the PHQ-9) 0 12/14/2022 [facility] - Occupational Stress [...] on file Legal Sex Female 11:04 AM QUALITY CONTROLLER Gender Identity Not on file Sexual Orientation Not on file Occupation Industry Job Start Date Job End Date Not on file Not on file Not on file Not on file documented as of this encounter Plan of Treatment Upcoming Encounters Date Type Department Care Team (Late st Contact Info) Description 03/04/2026 11:00 AM CDT Hospital Encounter [address] [address] Jeffry Lara MD [address] [place] [address] [address] [place] [address] 03/04/2026 11:00 AM CDT - 03/04/2026 11:30 AM CDT Surgery [address] [address] Jeffry Lara MD [address] [place] [address] [address] [place] [address] COLONOSCOPY Scheduled Procedures Name Priority Associated Diagnoses Date/Ti me COLONOSCOPY Encounter for screening colonoscopy 03/04/2026 11:00 AM CDT documented as of this encounter Visit Diagnoses Not on filedocumented in this encounter Additional Health Concerns Infection Onset Date Last Indicated Resolved Time COVID: Suspected 10/14/2024 10/14/2024 10/14/2024 11:21 AM QUALITY CONTROLLER documented as of this encounter Care Teams Sanitary Engineer Relationship Specialty Start Date End Date Dale Lam MD PCP - General 12/30/16 04/02/24 Po Vidal MD [address] [place] [address] [address] [place] [address] PCP - General Family Practice 04/03/24 10/13/24 Dale Lam MD [address] [place] [address] PCP - General Family Medicine 10/14/24 Jordan Merritt MD [address] [place] [address] [address], [place] [address] [employer] Operations Craftsman Obstetrics and Gynecology 07/07/20 documented as of this encounter
--- OUTSIDE RECORDS SUMMARY | 2025-09-03 17:46 | XMS_ITS | Clinical Summary ---
Author Organization [facility] Address [address] [place] [address] Care Team Providers Care Ticket Manager Name Role Phone Unavailable Primary Care Provider Unavailabl e Source Comments [facility],non-owned Affiliates and Associated Physician Practices is amultiple site organization consisting of ambulatory clinics and hospital sitesin [place], [place], [place] and [place]. This disclosure is being madepursuant to the Care Everywhere program and may not contain all information available regarding this patient. Last updated 18.[facility] Allergies Active Allergy Reactions Criticality Noted Date [...] on file Legal Sex Female 7:11 PM RECOVERY OPERATOR HELPER Gender Identity Not on file Sexual Orientation [...] patient's age to complete this topic [place] [address] [place] [address]
--- OUTSIDE RECORDS SUMMARY | 2025-09-03 17:46 | XMS_ITS | Encounter Summary ---
Author Organization [facility] Address [address] [place] [address] Phone Care Team Providers Care Tower Hand Name Role Phone Dale Lam MD Primary Care Provider [phone] Jordan Merritt MD Unavailable [phone] Po Vidal MD Primary Care Provider [phone] Dale Lam MD Primary Care Provider [phone] Encounter Details Date Type Department Care Team (Late st Contact Info) Description 10/06/2017 Orders Only [facility] ProviderBrooklyn MD [address] [place] [id number] Social History Tobacco Use Types Packs/Day Years Used Date Smoking Tobacco: Former Smokeless Tobacco: Never Comments:Smoking History Pac ks/day: 1 Packs Alcohol Use Standard Drinks/Week Comments No 0 (1 standard drink = 0.6 oz pur e alcohol) Comments No Sex and Gender Information Value Date Recorded Sex Assigned at Not on file Legal Sex Female 11:04 AM MARKER MACHINE ATTENDANT Gender Identity Not on file Sexual Orientation Not on file documented as of this encounter Plan of Treatment Upcoming Encounters Date Type Department Care Team (Late st Contact Info) Description 03/04/2026 11:00 AM CDT Hospital Encounter [facility] [address] [place] [address] Jeffry Lara MD [address] [place] [address] [address] [place] [address] 03/04/2026 11:00 AM CDT - 03/04/2026 11:[address] [facility] [address] [place] [address] Jeffry Lara MD [address] [facility] [address] [place] [address] COLONOSCOPY Scheduled Procedures Name Priority Associated Diagnoses Date/Ti me COLONOSCOPY Encounter for screening colonoscopy 03/04/2026 11:00 AM CDT documented as of this encounter Procedures Procedure Name Priority Date/Time Associated Diagnosis Comments DISCHARGE LABORATORY CUMULATIVE REPORT 10/06/2017 12:00 AM MARKER MACHINE ATTENDANT documented in this encounter Results * DISCHARGE LABORATORY CUMULATIVE REPORT (10/06/2017 12:00 AM MARKER MACHINE ATTENDANT) Narrative 10/06/2017 12:00 AM MARKER MACHINE ATTENDANT Ordered by an unspecified provider. us Historical Provider LAB BLOOD ORDERABLES Gabby l Result documented in this encounter Visit Diagnoses Not on filedocumented in this encounter Additional Health Concerns Infection Onset Date Last Indicated Resolved Time COVID: Suspected 09/04/2020 09/04/2020 09/06/2020 3:55 AM MARKER MACHINE ATTENDANT COVID19 09/04/2020 09/04/2020 09/18/2020 3:07 AM MARKER MACHINE ATTENDANT COVID: Recovered Comment:Added based on recent COVID infection. 09/18/2020 10/12/2020 01/16/2021 3:07 AM C DT COVID: Suspected 01/28/2022 01/28/2022 01/28/2022 1:38 PM CDT COVID: Suspected 03/02/2022 03/02/2022 03/02/2022 10:11 AM CDT COVID19 03/02/2022 03/02/2022 03/12/2022 3:05 AM CDT COVID: Recovered Comment:Added based on recent COVID infection. 03/12/2022 03/21/2022 07/10/2022 3:05 AM C DT COVID: Suspected 10/28/2022 10/28/2022 10/28/2022 11:52 AM MARKER MACHINE ATTENDANT COVID: Suspected 10/14/2024 10/14/2024 10/14/2024 11:21 AM MARKER MACHINE ATTENDANT documented as of this encounter Care Teams Tower Hand Relationship Specialty Start Date End Date Dale Lam MD PCP - General 12/30/16 04/02/24 Po Vidal MD [address] [facility] [address] [address] PCP - General Family Practice 04/03/24 10/13/24 Dale Lam MD [address] [address] PCP - General Family Medicine 10/14/24 Jordan Merritt MD [address] [facility] [address] [place] [address] Photo Colorer Obstetrics and Gynecology 07/07/20 documented as of this encounter
--- OUTSIDE RECORDS SUMMARY | 2025-09-03 17:46 | XMS_ITS | Clinical Summary ---
Author Organization [facility] Address [address] [place] [address] Phone Care Team Providers Care Pathology Laboratory Aides Teacher Name Role Phone Mita Post DO Primary Care Provider [phone] Allergies Active Allergy Reactions Criticality Noted Date [...] on file Legal Sex Female 2:42 PM CVT TECH Gender Identity Not on file Sexual Orientation [...] patient's age to complete this topic Insurance [facility] Care Teams Pathology Laboratory Aides Teacher Relationship Specialty Start Date End Date Mita Post DO [address] [address] PCP - General Family Medicine 09/18/15
--- OUTSIDE RECORDS SUMMARY | 2025-09-03 17:46 | XMS_ITS | Clinical Summary ---
Author Organization [facility] Address [address] [place] [address] Care Team Providers Care Corporate Director Talent Assessment Name Role Phone Jordan Merritt MD Unavailable [phone] Dale Lam MD Primary Care Provider [phone] Allergies Active Allergy Reactions Criticality Noted Date [...] type Assessment & Plan (09/15/2022 1:31 PM TRACK COACH): Stable, continues Adderall Refilled today for patient Herpes simplex virus (HSV) infection 05/05/2015 Overview (01/06/2017): Herpes simplex Asthma 07/25/2013 Overview (01/06/2017): Asthma Resolved Problems Problem Noted Date Diagnosed Date Resolved Date Menometrorrhagia 01/03/2019 05/14/2019 Overview (01/03/2019): Added automatically from request for surgery [id number] Dyspareunia, female 01/03/2019 05/14/20 19 Overview (01/03/2019): Added automatically from request for surgery [id number] Chronic pelvic pain in female 01/03/2019 05/14/2019 Overview (01/03/2019): Added automatically from request for surgery [id number] Pelvic pain in female 01/03/20192018 Overview (01/03/2019): Added automatically from request for surgery [id number] Abdominal adhesions 05/14/20 19 Adhesions of uterus 05/14/20 19 Adnexal adhesions 05/14/2019 Encounters Date Type Department Care Team Description 09/01/2025 10:30 AM TRACK COACH Office Visit [facility] at [address] [address] Dale Lam MD Adult ADHD (Primary Dx); Overweight (BMI 25.0-29.9) 07/28/2025 Telephone [facility] at [address] [place] [address] Gloria Campbell Colonoscopy Reschedule 07/23/2025 9:45 AM CDT Office Visit [facility] at [address] [address] Dale Lam MD Adult ADHD (Primary Dx); Prediabetes; Mild intermittent asthma, unspecified whether complicated; Screening mammogram for breast cancer; Personal history of nicotine dependence; Metabolic dysfunction-associat ed steatotic liver disease (MASLD) 06/23/2025 Results Follow-Up [facility] at [address] [address] Miladis Noe NP US Liver 06/20/2025 9:15 AM CDT - 06/20/2025 11:59 PM CDT Hospital Encounter [facility] [address] [place] [address] Discharge Disposition: Discharge to home or self care 06/16/2025 Results Follow-Up [facility] at [address] [address] Dale Lam MD Comprehensive metabolic panel, Lipid panel, Hemoglobin A1c, Additional followed-up results: 3 06/11/2025 4:35 PM CDT Lab [address] [address] Elevated LFTs 06/11/2025 4:15 PM CDT Office Visit [facility] at [address] [address] Dale Lam MD Elevated LFTs (Primary Dx) 06/11/2025 9:05 AM CDT Lab [address] [address] Mixed hyperlipidemia; Type 2 diabetes mellitus with [...] How often do you attend chur or episcopalian services? More than 4 times per year 07/07/2020 Do you belong to any clubs o r organizations such as anabaptism groups, unions, fraternal or athletic groups, or [...] staff should administer the PHQ-9) 0 09/01/2025 [facility] - Occupational Stress Questionnaire Answer Date [...] on file Legal Sex Female 11:04 AM TRACK COACH Gender Identity Not on file Sexual Orientation [...] Comments Blood Pressure 116/78 09/01/2025 10:31 AM TRACK COACH Pulse 79 09/01/2025 10:31 AM TRACK COACH Temperature 36.5 C (97.7 F) 09/01/2025 10:31 AM TRACK COACH Respiratory Rate 18 09/01/2025 10:31 AM TRACK COACH Oxygen Saturation 97% 09/01/2025 10:31 AM TRACK COACH Inhaled Oxygen Concentration - - Weight 82.7 kg (182 lb 4.8 oz) 09/01/2025 10:31 AM TRACK COACH Height 175.3 cm (5' 9) 09/01/2025 10:31 AM TRACK COACH Body Mass Index 26.92 09/01/2025 10:31 AM TRACK COACH Plan of Treatment Upcoming Encounters Date Type Department Care Team (Late st Contact Info) Description 03/04/2026 11:00 AM CDT Hospital Encounter [address] [address] Jeffry Lara MD [address] [place] [address] [place] [address] 03/04/2026 11:00 AM CDT - 03/04/2026 11:30 AM CDT Surgery [address] [address] Jeffry Lara MD [address] [place] [address] [place] [address] COLONOSCOPY Scheduled Procedures Name Priority Associated Diagnoses [...] thickening or pericholecystic fluid. No positive sonographic Coral sign reported. BILIARY: No ductal dilatation. Common duct measures 5 mm . ASCITES: None. OTHER: The pancreas is normal in appearance. The right kidney measures 13.2 cm in greatest diameter. No evidence of hydronephrosis or nephrolithiasis. IMPRESSION: Fatty infiltration of the liver. THIS IS AN ELECTRONICALLY VERIFIED FINAL REPORT 06/23/2025 1:23 AM - Electronically signed by Bala Askew M.D. KT: RUY Report ID: [id number] Reading Location: [id number] Procedure Note Bala Askew MD - 06/23/2025 [...] wall thickening or pericholecystic fluid. No positivesonographic Coral sign reported. BILIARY: No ductal dilatation. Common duct measures 5 mm . ASCITES: None. OTHER: The pancreas is normal in appearance. The right kidney fvbxozog13.2 cm in greatest diameter. No evidence of hydronephrosis ornephrolithiasis. IMPRESSION: Fatty infiltration of the liver. THIS IS AN ELECTRONICALLY VERIFIED FINAL REPORT 06/23/2025 1:23 AM - Electronically signed by Bala Askew M.D. KT: KT Report ID: [id number] Reading Location: [place] [address] us Dale Lam MD IMG US PROCEDURES Final Res ult * Hepatitis panel, acute Blood (06/11/2025 4:57 PM CDT) Hep A IgM Nonreactive Nonreactive Comment: Interpretive Data: If Hep A IgM Ab is reported as Equivocal, a new sample should be drawn in two weeks for testing. Current interpretive data was last revised on 19. Hep B core IgM Nonreactive Nonreactive [facility] Comment: Interpretive Data If HepB Core IgM Ab is reported as Equivocal, a new sample should be drawn in two weeks for testing. Current interpretive data was last revised on 19. Hep C Ab Nonreactive Nonreactive [facility] Comment: Antibodies to HCV not detected. [...] last revised on 2019. HepBsAg Nonreactive Nonreactive [facility] Blood 06/11/2025 4:57 PM CDT 06/11/2025 6:35 PM CDT Dale Lam MD LAB MICROBIOLOGY - GENERAL ORDERABLES Final Result Performing Organization Address [facility] Co de Phone Number MICHEAL [address] [address] * eGFR (06/11/2025 9:10 AM CDT) Pathologist [facility] eGFR >90 >=60 mL/min/1. 73 m2 Comment: [...] BLOOD ORDERABLES Final Result Performing Organization Address City/[facility]/ZIP Co de Phone Number MICHEAL [address] [place] [address] * Differential, auto (06/11/2025 9:10 AM CDT) Pathologist [facility] Neutrophil abs 2.05 1.50 - 6.50 K/cumm Imm gran abs 0.01 0.00 - 0.10 K/cumm [facility] Lymphocyte abs 1.66 0.80 - 3.30 K/cumm [facility] Monocyte abs 0.33 0.20 - 0.80 K/cumm [facility] Eosinophil abs 0.05 0.00 - 0.50 K/cumm [facility] Basophil abs 0.04 0.00 - 0.10 K/cumm [facility] Neutrophil pct 49.5 % [facility] Comment: Interpretive Data Percent cell count reference ranges are not reported, since discordance with absolute values may lead to misinterpretation of CBC data. Current Interpretive Data was last revised on 2018. Imm gran pct 0.2 % [facility] Comment: Interpretive Data Percent cell count reference ranges are not reported, since discordance with absolute values may lead to misinterpretation of CBC data. Current Interpretive Data was last revised on 2018. Lymphocyte pct 40.1 % [facility] Comment: Interpretive Data Percent cell count reference ranges are not reported, since discordance with absolute values may lead to misinterpretation of CBC data. Current Interpretive Data was last revised on 2018. Monocyte pct 8.0 % [facility] Comment: Interpretive Data Percent cell count reference ranges are not reported, since discordance with absolute values may lead to misinterpretation of CBC data. Current Interpretive Data was last revised on 2018. Eosinophil pct 1.2 % [facility] Comment: Interpretive Data Percent cell count reference ranges are not reported, since discordance with absolute values may lead to misinterpretation of CBC data. Current Interpretive Data was last revised on 2018. Basophil pct 1.0 % [facility] Comment: Interpretive Data Percent cell count reference ranges are not reported, since discordance with absolute values may lead to misinterpretation of CBC data. Current Interpretive Data was last revised on 2018. Blood 06/11/2025 9:10 AM CDT 06/11/2025 11:41 AM CDT us Dale Lam MD LAB BLOOD ORDERABLES Final Result MICHEAL [address] [facility] Department [place] [address] * CBC with auto differential (06/11/2025 9:10 AM CDT) WBC 4.14 3.80 - 9.90 K/cumm Hgb 13.4 11.9 - 15.5 g/dL [facility] Hct 39.9 35.6 - 45.5 % [facility] Plt 237 150 - 400 K/cumm [facility] MPV 10.8 9.1 - 12.3 fL [facility] RBC 4.49 3.90 - 5.20 M/cumm [facility] MCV 88.9 81.3 - 96.4 fL [facility] MCH 29.8 27.1 - 33.3 pg [facility] MCHC 33.6 32.3 - 35.7 g/dL [facility] RDW CV 11.9 11.1 - 14.9 % [facility] RDW SD 38.2 35.7 - 48.1 fL [facility] NRBC abs 0.00 0.00 - 0.01 K/cumm [facility] Blood 06/11/2025 9:10 AM CDT 06/11/2025 11:41 AM CDT Dale Lam MD LAB BLOOD ORDERABLES Final Result Performing Organization Address City/State/[facility] Phone Number [facility] [address] [facility] Department of Laboratories [place], [place] [id number] * (ABNORMAL) Hemoglobin A1c (06/11/2025 9:10 AM CDT) Pathologist [facility] Hgb A1C 5.8(H) 4.0 - 5.6 % Estimated Average Glucose 120 mg/dL [facility] Comment: The ADA recommends reporting an estimated Average Glucose (eAG) with all Hemoglobin A1c results using the equation derived from a study of 507 normal and diabetic adults. Minority populations were underrepresented and children were not included. (Diabetes Care 31:9178-7382, 2008). The eAG is not equivalent to a fasting glucose. Blood 06/11/2025 9:10 AM CDT 06/11/2025 11:41 AM CDT Dale Lam MD LAB BLOOD ORDERABLES Final Result MICHEAL [address] [facility] Department [place] [address] * (ABNORMAL) Lipid panel (06/11/2025 9:10 AM [...] MD LAB BLOOD ORDERABLES Final Result MICHEAL [address] [facility] Department [place] [address] * (ABNORMAL) Comprehensive metabolic panel (06/11/2025 9:10 AM CDT) Pathologist [facility] Sodium 140 135 - 145 mmol/L Potassium, pl 4.7 3.3 - 4.9 mmol/L [facility] Chloride 102 97 - 110 mmol/L [facility] CO2 27 22 - 32 mmol/L [facility] Anion gap 11 2 - 15 mmol/L [facility] BUN 13 6 - 25 mg/dL [facility] Creatinine 0.67 0.60 - 1.10 mg/dL [facility] Glucose 119 70 - 199 mg/dL [facility] Comment: Interpretive Data Fasting glucose >/= [...] 2022. Calcium 9.9 8.5 - 10.3 mg/dL [facility] Bilirubin, total 0.4 0.1 - 1.2 mg/dL [facility] Protein, pl 7.4 6.5 - 8.5 g/dL [facility] Albumin 4.7 3.5 - 5.0 g/dL [facility] Alk phos 85 40 - 130 Units/L [facility] ALT 84(H) 7 - 45 Units/L [facility] AST 68(H) 10 - 45 Units/L [facility] Blood 06/11/2025 9:10 AM CDT 06/11/2025 11:41 AM CDT us Dale Lam MD LAB BLOOD ORDERABLES Final Result MICHEAL [address] [facility] Department [place] [address] * Albumin Creatinine Ratio, Urine (01/06/2025 11:49 AM CDT) [facility] Albumin Ur <12.0 mg/L Comment: Interpretive Data No reference range established. Current interpretive data was last revised 2019. Creatinine Ur 139.8 mg/dL [facility] Comment: Interpretive Data No reference range established. Current interpretive data was last revised 2019. Albumin Creatinine Ratio, Ur <9 1 - 29 mg/g MICHEAL Urine 01/06/2025 11:4 9 AM CDT 01/06/2025 11:12 PM CDT Dale Lam MD LAB URINE ORDERABLES Final Result MICHEAL [address] [address] Department [place] [address] * CT Lung Cancer Screening (04/24/2024 4:45 [...] Sherry Christiansen M.D. TW: TW Report ID: [id number] Reading Location: [place] [address] Procedure Note Sherry Christiansen MD - 04/25/2024 [...] Electronically signed by Sherry Christiansen M.D. TW: MONQIUE Report ID: [id number] Reading Location: [place] [address] Kim Cotter NP IM CT PROCEDURES Final [...] 01/03/2019 3:11 PM CDT Performed at: - [facility] [id number] Vp Design: Yi Johnson MD, Phone: [phone] Performed at: - [facility] [id number] Vp Design: Yi Johnson MD, Phone: [phone] Specimen Comment: No. of containers..01 ThinPrep Vial Jordan Merritt MD LAB PATHOLOGY ORDERABLES F inal Result [facility] - 01 LAB [place] 02 * COLONOSCOPY IMAGES (02/17/2015) Anatomical Region Laterality Modality Other Narrative 02/17/2015 Ordered by an unspecified provider. us Historical Provider GI PROCEDURE ORDERABLES F inal Result from Last 3 Months or Most Recently Relevant to Health Maintenance Insurance [facility] CHOICE PLUS [facility] CHOICE PLUS [facility] CHOICE PLUS Advance Directives For more information, please contact: [phone] * Full Code (Latest Code Status on File) Date Activated Date Inactivated Comments 03/13/2019 2:07 PM 03/14/2019 3:50 PM Care Teams Corporate Director Talent Assessment Relationship Specialty Start Date End Date Dale Lam MD [address] [place] [address] PCP - General Family Medicine 10/14/24 Jordan Merritt MD [address] [place] [address] [address] [place] [address] Software Manager Obstetrics and Gynecology 07/07/20
[2025-09-03 17:49] LABS: Hematocrit 39.0 % (37.0-47.0); Hemoglobin 13.9 g/dL (12.0-15.0); Immature Granulocyte Percent A 0.2 % (0-0.5); Lymphocytes Absolute Auto 2.24 K/mm3 (0.9-3.2); Mean Corpuscular HGB Conc 35.6 g/dl (32-36); Mean Corpuscular Hemoglobin 30.0 pg (26-34); Mean Corpuscular Volume 84.2 fl (80-100); Nucleated Red Blood Cells Absolute Auto 0.000 K/mm3 (0.0-0.012); Nucleated Red Blood Cells Perc 0.0 % (0.0-0.2); Platelet Count Result 254 k/mm3 (150-375); Red Blood Count 4.63 M/mm3 (4.2-5.4); White Blood Count 6.6 K/mm3 (4.5-10.0)
[2025-09-03 17:53] LABS: Alanine Aminotransferase 27 U/L (6-35); Albumin Level 4.9 g/dL (3.5-5.1); Alkaline Phosphatase 71 U/L (38-126); Anion Gap 10 mmol/L (4-12); Aspartate Amino Transferase 32 U/L (14-36); Bilirubin,Total 0.9 mg/dL (0.2-1.3); Blood Urea Nitrogen 19 mg/dL (7-17); Calcium 10.4 mg/dL (8.4-10.2); Carbon Dioxide 22 mmol/L (22-30); Chloride 105 mmol/L (98-107); Estimated CRCL calculation 53 ml/min; Estimated Glomerular Filt Rate 49; Glucose 90 mg/dL (65-110); Lipase 91 U/L (23-300); Potassium 3.9 mmol/L (3.4-5.0); Sodium 137 mmol/L (137-145); Total Protein 8.0 g/dL (6.3-8.2)
[2025-09-03 18:05] VITALS: BP 130/98; PULSE 92; RESP 18; O2SAT 96
[2025-09-03 18:05] LABS: Add Urine Microscopic? YES; Appearance Urine Cloudy (Clear); Glucose Urine UA Negative (Negative); Leukocyte Esterase Ur 1+ LEU/UL (Negative); Need Manual Microscopic Reviewed; Nitrate Urine Negative (Negative); Non Pathogenic Casts >20; Specific Grav Ur 1.025 (1.001-1.035)
[2025-09-03 18:20] LABS: Cannabinoid Screen Urine Negative (Negative)
[2025-09-03 18:43] LABS: Influenza A QL RT-PCR Negative (Negative); Influenza B QL RT-PCR Negative (Negative); RSV RNA, RT-PCR Negative (Negative); SARS-CoV-2 RNA PCR Negative (Negative)
[2025-09-03 19:28] LABS: BEDSIDEPREGUCG Negative (Negative)
[2025-09-03] MEDS: SULFAMETHOXAZOLE/TRIMETHOPRIM 800/160 MG DS TABLET 1 TAB PO (19:48)
[2025-09-03 19:50] VITALS: BP 127/83; PULSE 94; RESP 17; TEMP 36.9; O2SAT 98
== END 2025-09-03 20:00 | disposition home or self-care (01) ==
PROVIDERS: Emergency Provider Registered Nurse; PCP Family Medicine
DX: N39.0 Urinary tract infection, site not specified (principal); K52.9 Noninfective gastroenteritis and colitis, unspecified; E86.0 Dehydration; R10.11 Right upper quadrant pain; Z20.822 Contact with and (suspected) exposure to COVID-19; E78.5 Hyperlipidemia, unspecified; R73.03 Prediabetes; Z90.710 Acquired absence of both cervix and uterus; K76.0 Fatty (change of) liver, not elsewhere classified; I45.10 Unspecified right bundle-branch block; R94.31 Abnormal electrocardiogram [ECG] [EKG]; Z79.85 Long-term (current) use of injectable non-insulin antidiabetic drugs
CPT/HCPCS: 36415; 74177; 76705; 80053; 80307; 81001; 81025; 83605; 83690; 85025; 87637; 93005; 96361; 96374; 96375; 99284; A9270; J1200; J2270; J2765; J7030; Q9967